=== PATIENT | male | born 1980 | race Caucasian/White ===

== ENCOUNTER 2018-11-19 03:06 | Emergency (ER) | payer SELFPAY ==
[2018-11-19 03:12] VITALS: BP 125/82; PULSE 80; RESP 18; TEMP 36.8; O2SAT 98
--- NOTE | 2018-11-19 03:18 | DI.RAD.S_ITS ---
PROCEDURE: XR SHOULDER LT MIN 2V INDICATIONS: pain with limited range of motion TECHNIQUE: 2 views of the shoulder were acquired. COMPARISON: None. FINDINGS: Bones: No fractures or dislocations. Severe osteoarthritic degenerative changes noted in the glenohumeral joint. Numerous large ossified intra-articular loose bodies are noted. Soft tissues: No suspicious soft tissue calcifications. IMPRESSION: 1. Severe left glenohumeral joint osteoarthritis. 2. Numerous large ossified intra-articular loose bodies. Dictated by: Anne Dial MD, PhD on 11/19/2018 at 8:29 Approved by: Anne Dial MD, PhD on 11/19/2018 at 8:29
[2018-11-19] MEDS: KETOROLAC 60 MG/2 ML VIAL IM (03:29)
--- NOTE | 2018-11-19 03:31 | ED.EXTPRO ---
HPI - Extremity Problem General Chief complaint: Extremity Problem,Nontraumatic Stated complaint: left shoulder pain Time Seen by Provider: 11/19/18 03:08 Source: patient Mode of arrival: Ambulatory Limitations: no limitations History of Present Illness HPI Narrative: 30-year-old male smoker with multiple orthopedic injuries in his past presents with his significant other in the chief complaint of a left shoulder injury suffered yesterday while exiting his truck. He states he was reaching out with his left arm to grab the door and moved it in an awkward position since his felt significant pain with most motions of his shoulder. He denies any other injury. He denies any numbness, tingling or weakness. MD Complaint: extremity pain Onset (ago): day(s) Pain Consistency: constant Location: left Quality: stabbing and aching Radiation: none Relieving factors: rest Exacerbating factors: range of motion Associated symptoms: denies other symptoms Related Data Previous Rx's Medication Instructions Recorded cyclobenzaprine 10 mg PO TID PRN #10 tab 11/19/18 ketorolac 10 mg PO Q6H PRN #14 tab 11/19/18 Allergies Allergy/AdvReac Type Severity Reaction Status Date / Time No Known Drug Allergies Allergy Verified 11/19/18 03:23 Review of Systems Constitutional Constitutional: Denies chills, Denies fatigue, Denies fever(s), Denies frequent falls, Denies lethargy and Denies weakness Eyes Eyes: Denies change in vision, Denies eye discharge, Denies irritation and Denies loss of vision ENT Ears, Nose, Mouth, and Throat: Denies change in voice, Denies dizziness, Denies neck pain, Denies sore throat and Denies throat swelling Cardiovascular Cardiovascular: Denies chest pain, Denies irregular heart rhythm, Denies lightheadedness, Denies palpitations, Denies dyspnea, Denies dyspnea on exertion and Denies orthopnea Respiratory Respiratory: Denies cough, Denies dyspnea, Denies dyspnea on exertion and Denies wheezing Gastrointestinal Gastrointestinal: Denies abdominal pain, Denies change in bowel habits, Denies diarrhea, Denies nausea and Denies vomiting Genitourinary Genitourinary: Denies hematuria, Denies flank pain, Denies urinary incontinence and Denies urinary urgency Musculoskeletal Musculoskeletal: Denies back pain, Reports limited range of motion, Denies muscle weakness, Denies neck pain, Denies numbness and Denies tingling Integumentary/Breasts Skin/Breast: Denies pruritus, Denies erythema, Denies rash and Denies wounds Neurologic Neurologic: Denies behavioral changes, Denies confusion, Denies dizziness, Denies frequent falls, Denies loss of vision, Denies numbness, Denies tingling and Denies weakness Psychiatric Psychiatric: Denies anxiety, Denies behavioral changes, Denies confusion, Denies depression, Denies homicidal ideation and Denies suicidal ideation Endocrine Endocrine: Denies fatigue, Denies flushing and Denies palpitations Hematologic/Lymphatic Hematologic/Lymphatic: Denies easy bruising Allergic/Immunologic Allergic/Immunologic: Denies urticaria, Denies throat swelling and Denies wheezing PFSH Social History Smoking Status: Current every day smoker Social History Smoking Status: Current every day smoker Exam Narrative Exam Narrative: GEN: AOx3 and in mild distress EYES: Pupils are equal, round, and reactive to light and accommodation. Extraoccular muscles are intact bilaterally. There is no subconjunctival hemorrhage or exudate. CHEST: Lungs are clear to auscultation bilaterally and free of wheezes, rales, or rhonchi. Heart rate is regular rhythm, there are no murmurs, clicks, rubs, or gallops. There is no chest wall tenderness. ABD: Abdomen is soft and nontender. There is no guarding or rebound. Bowel sounds are normal in all 4 quadrants. There is no mass or organomegaly. EXT: Decreased ROM secondary to pain in left shoulder. No numbness or weakness. Pain with most motions, mainly at insertion of biceps. SKIN: Warm, pink, and dry. No erythema or rash Initial Vital Signs Initial Vital Signs: Vital Signs Temperature 98.3 F 11/19/18 03:12 Pulse Rate 80 11/19/18 03:12 Respiratory Rate 18 11/19/18 03:12 Blood Pressure 125/82 11/19/18 03:12 Pulse Oximetry 98 11/19/18 03:12 Procedures Orthopedic Splinting/Casting Injury #1: Side: left Upper Extremity Injury Location: shoulder Upper Extremity Immobilizer: sling/shoulder immobilizer Post splinting neuro exam: intact Post splinting vascular exam: intact Placed by: Nursing Course Orders Ordered: ED Orders 11/19/18 03:18 XR shoulder LT min 2V Stat Discontinued Medications Ketorolac Tromethamine (Toradol) 60 mg IM NOW ONE Stop: 11/19/18 03:19 Last Admin: 11/19/18 03:29 Dose: 60 mg Documented by: COCO Vital Signs Vital signs: Vital Signs - 8 hr 11/19/18 03:12 11/19/18 04:15 Temperature 98.3 F Pulse Rate 80 68 Respiratory Rate 18 18 Blood Pressure 125/82 116/69 Pulse Oximetry 98 98 MDM - Extremity (Nontraumatic) Imaging Data Shoulder Xray: Attestation: I personally reviewed and interpreted this imaging study as follows: My impression: chronic arthritic change Radiologist's impression: Advanced OA change of L glenohumeral joint with suspected loos intraarticular bodies Discharge Plan Departure Patient Disposition: Home Clinical Impression: Acute pain of left shoulder Discharge Date/Time: 11/19/18 04:17 Instructions: DI for Shoulder Pain Activity Restrictions/Additional Instructions: *You have been diagnosed with [acute left shoulder pain with chronic arthritis noted on x-ray] *What to do: *Take medications as directed *Follow up with your primary care provider in 2-3 days, call for an appointment. Let them know you were seen in the Emergency Department and that we ask that you be seen in follow up *Return to ER if you should have any new, worsening or concerning symptoms Prescriptions: New ketorolac 10 mg tablet 10 mg PO Q6H PRN (Reason: pain) Qty: 14 RF: 0 cyclobenzaprine 10 mg tablet 10 mg PO TID PRN (Reason: muscle spasm) Qty: 10 RF: 0 Referrals: [facility] Resources [Outside] Stand Alone Forms: Work Release Note
[2018-11-19 04:15] VITALS: BP 116/69; PULSE 68; RESP 18; O2SAT 98
== END 2018-11-19 04:17 | disposition home or self-care (01) ==
PROVIDERS: Emergency Provider Emergency Medicine
DX: M25.512 Pain in left shoulder (principal); S49.92XA Unspecified injury of left shoulder and upper arm, initial encounter
CPT/HCPCS: 73030; 96372; 99282; 99283; J1885

== ENCOUNTER 2019-05-05 03:18 | Emergency (ER) | payer SELFPAY ==
[2019-05-05 03:25] VITALS: BP 125/58; PULSE 86; RESP 18; TEMP 37; O2SAT 100
--- NOTE | 2019-05-05 03:30 | PC.NURSE ---
PT states R knee pain, splitting wood a week ago, and wood chip struck his rt knee caused laceration, now swollen, red, draining and painful after epsom salt bath. Denies Fever.
--- NOTE | 2019-05-05 03:38 | DI.RAD.S_ITS ---
PROCEDURE: XR KNEE RT 3V INDICATIONS: knee pain, had laceration 1 week ago opened back up, swelling TECHNIQUE: 3 views of the knee were acquired. COMPARISON: None. FINDINGS: Bones: No fractures or dislocations. No suspicious bony lesions. Soft tissues: Trace joint effusion. No suspicious soft tissue calcifications. Prepatellar soft tissue swelling. IMPRESSION: 1. No acute osseous abnormalities. 2. Prepatellar soft tissue swelling and trace knee joint effusion. Dictated by: Keke Lackey M.D. on 05/05/2019 at 8:19 Approved by: Keke Lackey M.D. on 05/05/2019 at 8:21
--- NOTE | 2019-05-05 03:39 | ED_ITS ---
HPI - Extremity Injury (Lower) General Chief Complaint: Extremity Injury, Lower Stated Complaint: right knee is infected/swollen Time Seen by Provider: 05/05/19 03:29 Source: patient Mode of arrival: Ambulatory Limitations: no limitations History of Present Illness HPI Narrative: This is a 39-year-old male who comes to the emergency department with complaint of right knee swelling and concern for infection. Last a week ago patient was chopping wood when a small piece broke off and hit him in the knee. Patient states he did not think that he had injured his knee until he took his pants off and saw a small laceration. States that it closed up seem to be healing fine and over the last several days he has had increasing swelling and pain in the knee, some very mild redness and it reopened in the last 2 days. He states it has been draining clearish fluid. He states he is more comfortable walking around in sitting still. He denies any numbness tingling or weakness. He describes pain over the area of laceration and a little bit of suprapatellar discomfort. He has not had any fevers. He does have a history of epilepsy and takes daily anti left ache prescribed by his neurologist at [facility]. And states that he has not had a seizure in many years. He denies any other medical history. He denies any recent surgeries. He states he does not know if his tetanus is up-to-date. He has been taking ibuprofen which has been minimally helpful for pain. Related Data Previous Rx's Medication Instructions Recorded cyclobenzaprine 10 mg PO TID PRN #10 tab 11/19/18 ketorolac 10 mg PO Q6H PRN #14 tab 11/19/18 doxycycline hyclate 100 mg PO BID #20 cap 05/05/19 Allergies Allergy/AdvReac Type Severity Reaction Status Date / Time No Known Drug Allergies Allergy Verified 11/19/18 03:23 Review of Systems Review of Systems ROS Unobtainable: All systems reviewed & are unremarkable except as noted in HPI and below Patient History Medical History (Updated 05/05/19 @ 04:02 by Alexandrea Luna DO) Epilepsy (Acute) Social History Smoking Status: Current every day smoker Smoking Status: Current every day smoker alcohol intake frequency: a few times a week Substance Use Type: does not use Exam Narrative Exam Narrative: GENERAL: Alert and oriented x three, well-nourished, well- appearing male in mild distress. HEENT: Head normocephalic, atraumatic, EOMI, pupils reactive, face symmetric, moist mucous membranes NECK: Supple, full range of motion CARDIOVASCULAR: Regular rate and rhythm without murmurs, rubs or gallops. RESPIRATORY: Breath sounds equal bilaterally, no wheezes rales or rhonchi. ABDOMEN: Soft, nontender. Normoactive bowel sounds all 4 quadrants. No guarding or rebound, rigidity, no mass EXTREMITIES: Normal range of motion, patient does have edema of the right knee, no ballotable effusion, he has a 1 cm laceration over the lateral knee on the right that is medial and superior to the patella, a it is draining clear serosanguineous fluid. There is no warmth. It is moderately tender. I am not able to express any purulent fluid. There is some very mild redness surrounding the area extending about 0.5 cm to 2 cm with no clear line of demarcation. Neurovascularly intact, normal sensation throughout the lower extremity 2+ dorsalis pedis. NEUROLOGICAL: Cranial nerves II through XII grossly intact. Moving all extremities SKIN: Warm, dry, no petechiae, no rashes or lesions other than described above Initial Vital Signs Initial Vital Signs: Vital Signs Temperature 98.6 F 05/05/19 03:25 Pulse Rate 86 05/05/19 03:25 Respiratory Rate 18 05/05/19 03:25 Blood Pressure 125/58 L 05/05/19 03:25 Pulse Oximetry 100 05/05/19 03:25 Course Orders Ordered: ED Orders 05/05/19 03:38 XR knee RT 3V Stat Discontinued Medications Hydrocodone Bitart/Acetaminophen ([place] 5/325) 1 tab PO NOW ONE Stop: 05/05/19 03:39 Last Admin: 05/05/19 03:54 Dose: 1 tab Documented by: MMCFARL Hydrocodone Bitart/Acetaminophen (Vicodin 5/325 Prepack) 1 bottle MISC SEEINSTR ONE Stop: 05/05/19 04:07 Diphtheria/Tetanus/Acell Pertussis (Adacel) 0.5 ml IM .ONCE ONE Stop: 05/05/19 03:39 Last Admin: 05/05/19 03:55 Dose: 0.5 ml Documented by: YOUSUF Doxycycline Hyclate (Vibramycin) 100 mg PO NOW ONE Stop: 05/05/19 03:58 Last Admin: 05/05/19 04:01 Dose: 100 mg Documented by: YOUSUF Vital Signs Vital signs: Vital Signs - 8 hr 05/05/19 03:25 05/05/19 04:02 Temperature 98.6 F Pulse Rate 86 63 Respiratory Rate 18 14 Blood Pressure 125/58 L 125/57 L Pulse Oximetry 100 [facility] - Extremity Injury (Lower) Imaging Data Right knee x-ray: Attestation: I personally reviewed and interpreted this imaging study as follows: My Impression: No fracture, no foreign body. Patient does appear to have a joint effusion with soft tissue swelling. [facility] Narrative Medical decision making narrative: Patient has no open laceration and I would start him on antibiotics as he does appear to have some mild cellulitis does have swelling over the knee. The wound does not appear particularly deep. Tetanus is updated. There does not appear to be a foreign body on visual or physical inspection and x-ray shows soft tissue swelling. Patient was started on a doxycycline which does not appear that it should lower his seizure threshold according to resources. Patient and I discussed reasons to return emergently, plan for follow-up and return precautions. Discharge Plan Departure Patient Disposition: Home Clinical Impression: Cellulitis of knee, right Laceration of knee with complication Qualifiers: Encounter type: initial encounter Laterality: right Qualified Code(s): S81.011A - Laceration without foreign body, right knee, initial encounter Discharge Date/Time: 05/05/19 04:02 Instructions: DI for Cellulitis -- Adult, DI for Open Laceration Activity Restrictions/Additional Instructions: Follow-up in the next 5-7 days if her symptoms are not resolving. May return to the ER if he cannot follow up with primary care. You may call [phone] for a potential primary care provider or follow up with the urgent care clinic. Take antibiotics until completely gone. I would recommend continuing ibuprofen and/or Tylenol as needed for pain. You may take narcotic pain medication 1 tablet every 6 hours as needed for pain. Wound Care: Keep wound(s) clean and dry. Wash twice daily with soap and water only. Do not use over the counter products (alcohol or peroxide)on the wounds unless instructed by a physician. You may use a topical triple antibiotic ointment. If wound condition worsens (increased/expanding redness, developing fluid blisters, or worsening pain), either contact your doctor for an urgent re- assessment , or return to the Emergency Department. Return to the Emergency Department for any new or worsening symptoms. Return if fever greater than 100.4 Fahrenheit, increased swelling, increasing pain or worsening symptoms such as increased discharge or spreading redness. Return to the ER for fevers greater 100.4 F, increasing swelling, increasing redness, purulent drainage from the knee, new numbness, tingling or weakness. Prescriptions: New doxycycline hyclate 100 mg capsule 100 mg PO BID Qty: 20 RF: 0 No Action ketorolac 10 mg tablet 10 mg PO Q6H PRN (Reason: pain) Qty: 14 RF: 0 cyclobenzaprine 10 mg tablet 10 mg PO TID PRN (Reason: muscle spasm) Qty: 10 RF: 0
[2019-05-05] MEDS: HYDROCODONE/ACET 5/325 TABLET 1 TAB PO (03:54)
[2019-05-05] MEDS: TET,DIPH,PERTUSS(ACELL),VAC/PF 0.5 ML SYRINGE IM (03:55)
[2019-05-05] MEDS: DOXYCYCLINE HYCLATE 100 MG TABLET PO (04:01)
[2019-05-05 04:02] VITALS: BP 125/57; PULSE 63; RESP 14
--- NOTE | 2019-05-05 13:38 | PM.CN ---
History of Present Illness Consult details Date Patient Seen: 05/05/19 Time Patient Seen: 13:38 Chief complaint: right knee is infected/swollen Reason for consult: left knee cellulitis, r/o septic knee Requesting provider: Fernando Paul Narrative: Patient is a 39 yo M with a history of a seizure disorder. He cut himself with a piece of wood while cutting wood yesterday. He was seen in the ER this morning at 3am and discharged with doxycycline. He has had worsening of the cellulitis since DC this am. He had a seizure this am. He presents this afternoon with increased pain, swelling, erythema. Able to ambulate on the right knee. Meds Home Medications and Allergies Home Medications Medication Instructions Recorded Confirmed Type divalproex 250 mg PO BID 05/05/19 05/05/19 History lamotrigine 200 mg PO BID 05/05/19 05/05/19 History Allergies Allergy/AdvReac Type Severity Reaction Status Date / Time amoxicillin Allergy Verified 05/05/19 11:32 Review of Systems Review of Systems ROS: Yes All systems reviewed with the patient and are negative except as otherwise documented Exam Vital Signs (past 8 hours): Oxygen Delivery Method Room Air Narrative Exam Narrative: NV intact in RLE, small laceration to the medial side of the right knee. No active drainage. Surrounding erythema and swelling. Increased from previous (3am). Small joint effusion. Mild pain with knee ROM. Skin over the lateral aspect of the knee is clear. No fluctuance or palpable mass over medial aspect of knee. Assessment & Plan Assessment & Plan narrative: Patient is a 39 yo male with a lacertation over the medial aspect of his right knee from a piece of firewood. He has failed a course of oral abx (doxycycline). There was concern for possible right knee septic arthriitis. Right knee aspiration was performed here in the ED. 5cc of clear, straw-colored synovial fluid was aspirated and sent for gram stain, cell count, and cultures. Low concern for septic arthritis or abscess. Recommend admission for IV abx for cellultitis. Please contact Dr. Terrazas if knee aspirate labs are abnormal. Time Spent With Patient Time with patient: 15-24 minutes
== END 2019-05-05 04:02 | disposition home or self-care (01) ==
PROVIDERS: Emergency Provider Emergency Medicine
DX: L03.115 Cellulitis of right lower limb (principal); S81.011A Laceration without foreign body, right knee, initial encounter; Z23 Encounter for immunization
CPT/HCPCS: 73562; 90471; 99283; 90715

== ENCOUNTER 2019-05-05 11:21 | Inpatient (IN) | payer SELFPAY ==
[2019-05-05] VITALS (12 sets, daily range): BP systolic 100–125; BP diastolic 61–79; PULSE 97–128; RESP 16–20; TEMP 36.7–38.7; O2SAT 93–98; BMI 25.9
--- NOTE | 2019-05-05 11:38 | ED_ITS ---
HPI - General Adult General Chief complaint: Seizure Stated complaint: right leg infection Time Seen by Provider: 05/05/19 11:23 Source: patient Mode of arrival: Ambulatory Limitations: no limitations History of Present Illness HPI narrative: With a history of seizures was seen here in the emergency department approximately 12 hours ago for what was initially described as an infection of his right knee. The initial injury was a cut with a piece of wood approximately 1 week ago. During his visit to the emergency department a few hours ago was described as a small area of erythema around the cut to his right knee. Patient was given a dose of doxycycline at that visit by mouth and was sent home with a prescription and also pain medications. X-rays performed which showed note foreign body. No blood work was drawn. Patient states he went home and woke up this morning and the redness was worse. He is having more pain. He also had a seizure this morning. He did take his seizure medications. He has n ot had a seizure in several years. Also reports that he had a fever this morning of greater than 101. Related Data Home Medications Medication Instructions Recorded Confirmed divalproex 250 mg PO BID 05/05/19 05/05/19 lamotrigine 200 mg PO BID 05/05/19 05/05/19 Allergies Allergy/AdvReac Type Severity Reaction Status Date / Time amoxicillin Allergy Verified 05/05/19 11:32 Review of Systems Constitutional Constitutional: Denies headache(s) and Reports lethargy ENT Ears, Nose, Mouth, and Throat: Denies headache(s) Cardiovascular Cardiovascular: Denies chest pain and Denies dyspnea Respiratory Respiratory: Denies dyspnea Gastrointestinal Gastrointestinal: Denies abdominal pain Musculoskeletal Comments: Right knee pain Integumentary/Breasts Skin/Breast: Reports rash and Reports wounds Neurologic Neurologic: Denies headache(s) and Reports seizure-like activity Hematologic/Lymphatic Hematologic/Lymphatic: Denies easy bleeding and Denies easy bruising Patient History Medical History Epilepsy (Acute) Social History Smoking Status: Current every day smoker Smoking Status: Current every day smoker alcohol intake frequency: a few times a week Substance Use Type: does not use Exam Initial Vital Signs Initial Vital Signs: Vital Signs Temperature 98.4 F 05/05/19 11:32 Pulse Rate 103 H 05/05/19 11:32 Respiratory Rate 16 05/05/19 11:32 Blood Pressure 124/64 05/05/19 11:32 Pulse Oximetry 98 05/05/19 11:32 Const General: cooperative, comfortable and well developed Limitations: mental status not altered [facility] Head: normal to inspection and normocephalic Resp Effort & Inspection: normal respiratory effort Cardio Rate: regular rate Pulses: dorsalis pedis present on the right Skin Other: Patient with a 1 cm laceration to the medial aspect superior to the right patella. Is draining purulent material. Also has redness extending down the medial aspect of the needle almost to the posterior aspect both superior and inferior to the knee joint. Extrem Other: Tenderness to palpation with movement of the right knee. Right ankle right hip unremarkable Psych Appearance: grossly normal and well kempt Course Orders Ordered: ED Orders 05/05/19 11:52 Basic Metabolic Panel Stat C-Reactive Protein Quant Stat Complete Blood Count AUTO DIFF Stat Erythrocyte Sedimentation Rate Stat 05/05/19 13:29 Uric Acid Stat 05/05/19 13:35 Body Fluid Culture Stat Cell Count w Diff Body Fluid Stat Crystals Body Fluid - IN-HOUSE Stat 05/05/19 13:42 Consult to Orthopedic Surgery Stat 05/05/19 13:59 Procalcitonin Stat Ceftriaxone Sodium/Dextrose (Rocephin) 1 gm in 50 mls @ 100 mls/hr IV NOW ONE Stop: 05/05/19 14:27 Discontinued Medications Hydrocodone Bitart/Acetaminophen ([place] 5/325) 1 tab PO NOW ONE Stop: 05/05/19 12:10 Last Admin: 05/05/19 12:23 Dose: 1 tab Documented by: LISA Vancomycin HCl (Vancomycin) 1,000 mg in 200 mls @ 200 mls/hr IV NOW ONE Stop: 05/05/19 13:02 Last Infusion: 05/05/19 13:15 Dose: 0 mls/hr Documented by: Admin: 05/05/19 12:14 Dose: 200 mls/hr Documented by: LISA Vital Signs Vital signs: Vital Signs - 8 hr 05/05/19 11:32 05/05/19 12:11 05/05/19 12:23 Temperature 98.4 F 98.4 F 98.4 F Pulse Rate 103 H 97 H Respiratory Rate 16 17 Blood Pressure 124/64 Blood Pressure [Right Arm] 124/64 Pulse Oximetry 98 98 05/05/19 12:56 Temperature 98.9 F Pulse Rate 101 H Respiratory Rate 20 Blood Pressure Blood Pressure [Right Arm] 124/64 Pulse Oximetry 97 Medical Decision Making Lab Data Lab results reviewed: Yes I reviewed the patient's lab results. Result diagrams: 05/05/19 11:52 05/05/19 11:52 Labs: Lab Results 05/05/19 05/05/19 Range/Units 11:52 11:52 WBC 44.9 H* (4.5-11.0) X10^3/uL RBC 5.28 (4.5-5.9) X10^6/uL Hgb 15.8 (13.5-17.5) g/dL Hct 47.0 (41-53) % MCV 88.9 (80-100) fL MCH 30.0 (26-34) PG MCHC 33.7 (30-36) % RDW 13.2 (11.6-14.8) % Plt Count 477 H (150-400) X10^3/uL Neut % (Auto) Administrative Associate Lymph % (Auto) Administrative Associate Millard % (Auto) Administrative Associate Eos % (Auto) Administrative Associate Baso % (Auto) Administrative Associate Neut # (Auto) Administrative Associate Lymph # (Auto) Administrative Associate Millard # (Auto) Administrative Associate Eos # (Auto) Administrative Associate Baso # (Auto) Administrative Associate Total Counted 100 Seg Neutrophils % 72.0 H (38-70) % Band Neutrophils % 20.0 H (3-7) % Lymphocytes % (Manual) 1.0 L (25-45) % Monocytes % (Manual) 6.0 (2-11) % Metamyelocytes % 1.0 H (-0) % Neutrophils # (Manual) 26407 H (4375-5591) /uL Platelet Estimate Increased on smear Plt Morphology Comment RBC Morphology Normal morphology ESR 1 (0-15) MM/HR Sodium 136 L (137-145) mmol/L Potassium 4.2 (3.4-5.1) mmol/L Chloride 101 (98-107) mmol/L Carbon Dioxide 20 L (22-32) mmol/L BUN 18 (9-20) mg/dL Creatinine 0.90 (0.66-1.25) mg/dL Estimated GFR > 60.0 (>60) mL/min BUN/Creatinine Ratio 20.0 (6-22) Glucose 155 H (70-100) mg/dL Calcium 9.7 (8.4-10.2) mg/dL C-Reactive Protein 3.3 H (<1.0) mg/dL MDM Narrative Medical decision making narrative: Does appear that the patient's right knee cellulitis is worsening since his last visit here just several hours ago. He is afebrile here in the ER. He reports that he did have a fever this morning. Did not take any Tylenol or ibuprofen prior to coming. He also had a seizure this morning. I do suspect this is related to his infection that he has. Is alert and oriented upon arrival. Has a leukocytosis. Unsure if this is related to an issue such as leukemia or if it is elevated because of the infection and the seizure he had today. Patient was given antibiotics. I did discuss the case with Dr. Terrazas who evaluated the patient in the emergency department. He did perform a knee aspiration. We do have low suspicion that this is a septic j oint. He will continue to follow the patient. I did discuss the case with Dr. Araya on-call for Medicine who will admit the patient for continued evaluation and treatment. Discussed this with the patient and family. They expressed understanding and agreement. Discharge Plan Departure Patient Disposition: Admitted As Inpatient Clinical Impression: Seizure Cellulitis Qualifiers: Site of cellulitis: extremity Site of cellulitis of extremity: lower extremity Laterality: right Qualified Code(s): L03.115 - Cellulitis of right lower limb Leukocytosis Qualifiers: Leukocytosis type: unspecified Qualified Code(s): D72.829 - Elevated white blood cell count, unspecified Admit Date/Time: 05/05/19 14:06 Admit Provider: Gloria Araya ED Sign-out Cosign ED Attending Cosignature Attestation: I was immediately available in the department for consultation. This documentation has been reviewed and I agree with assessment and plan. Supervised by Fernando Paul DO
[2019-05-05 12:04] LABS: Hemoglobin 15.8 g/dL (13.5-17.5); Mean Corpuscular HGB Conc 33.7 % (30-36); Mean Corpuscular Volume 88.9 fL (80-100); Platelet Count 477 X10^3/uL (150-400); Red Blood Cell Count 5.28 X10^6/uL (4.5-5.9); Red Cell Distribution Width 13.2 % (11.6-14.8)
[2019-05-05 12:06] LABS: Add Manual Diff / Slide Review YES; White Blood Cell Count 44.9 X10^3/uL (4.5-11.0)
--- NOTE | 2019-05-05 12:07 | PC.NURSE ---
Patient is epileptic and does have aural sensation. Before he has a seizure, he doesn't feel well and his right eye droops.
[2019-05-05] MEDS: VANCOMYCIN 1,000 MG/200 ML PIGGYBACK 200 MG IV (12:14)
[2019-05-05 12:15] LABS: Blood Urea Nitrogen 18 mg/dL (9-20); C-Reactive Protein Quant 3.3 mg/dL (<1.0); Calcium 9.7 mg/dL (8.4-10.2); Carbon Dioxide 20 mmol/L (22-32); Chloride 101 mmol/L (98-107); Estimated Glomerular Filt Rate > 60.0 mL/min (>60); Glucose 155 mg/dL (70-100); HEMOLYSIS 37 (0-50); Potassium 4.2 mmol/L (3.4-5.1); Sodium 136 mmol/L (137-145)
[2019-05-05] MEDS: HYDROCODONE/ACET 5/325 TABLET 1 TAB PO ×2 (12:23→17:36)
[2019-05-05 12:36] LABS: Neutrophils Absolute Manual 41308 /uL (3000-5900); Total Cells Counted 100
[2019-05-05 12:37] LABS: Platelet Estimate Increased on smear; RBC Morphology Normal Morphology
[2019-05-05 12:39] LABS: Erythrocyte Sedimentation Rate 1 MM/HR (0-15)
--- NOTE | 2019-05-05 12:58 | PC.NURSE ---
Patient was reassessed for the IV vancomycin. Patient reported no discomfort and pain coming from IV site.
[2019-05-05 14:12] LABS: Body Fluid Tot Nucleated Cells 226 /uL
[2019-05-05 14:13] LABS: Body Fluid Red Blood Cells 415 /uL
[2019-05-05 14:14] LABS: Body Fluid Appearance SLIGHTLY CLOUDY; Body Fluid Clotted? NO CLOTS PRESENT; Body Fluid Color YELLOW
[2019-05-05] MEDS: CEFTRIAXONE 1 GM/50 ML FROZ.PIGGY IV (14:21)
[2019-05-05 14:48] LABS: Crystals Body Fluid - IN-HOUSE NONE Present
[2019-05-05 14:57] LABS: Mononuclear WBC Body Fluid 81 %; Polynuclear WBC Body Fluid 19 %
[2019-05-05 15:11] LABS: Uric Acid 8.3 mg/dL (3.5-8.5)
[2019-05-05 15:30] LABS: Procalcitonin 1.78 ng/mL (<0.5)
[2019-05-05] MEDS: SODIUM CHLORIDE 0.9% 1,000 ML 100 ML IV (16:10)
--- NOTE | 2019-05-05 20:50 | P.HP_ITS ---
History of Present Illness History of Present Illness Date Patient Seen: 05/05/19 Time Patient Seen: 22:15 Chief complaint: right leg infection Narrative: Jah Wei is a 39-year-old male with a seizure disorder who presented for 2nd time to the emergency department today with fever and a seizure that may have been associated with being treated for a cellulitis of the right lower thigh. Patient had apparently sustained a laceration of his right lower thigh just above the patella while cutting wood approximately 1 week ago. He presented to the emergency department yesterday night and was given oral doxycycline and discharged. He developed a fever this morning and at some point had a seizure and represented today. He states he had a fever of 100.4, had been having nausea and vomiting causing him to have generalized chest pain. He denies shortness of breath, abdominal pain, diarrhea, constipation, dysuria, or numbing and tingling. Patient does not have a PCP. He lives [place] of [facility] and sees a neurologist at [facility] for his seizure follow-ups and medication prescriptions. He states he will not go to [facility] for any of his medical care. In his initial presentation to the ED last night, they did a fluid aspirate and anaerobic and aerobic cultures are pending. Patient History Medical History (Updated 05/05/19 @ 21:06 by JEN Monsalve) Epilepsy (Acute) Laceration of knee with complication (Inactive) Seizure disorder (Acute) Family & Social History Family History (Updated 05/05/19 @ 21:07 by JEN Monsalve) Other Diabetes mellitus Social History: household members significant other Prior Living Arrangements House Safety & Behavioral: Feels Safe in Current Yes Environment Suicidal Ideation Description None Suicide Plan Description No Plan Tobacco & Substance use: Smoking Status Current every day smoker Smoking packs per day 0.5 alcohol intake frequency 1 beer daily Substance Use Type denies Meds Home Medications and Allergies Home Medications Medication Instructions Recorded Confirmed Type divalproex 250 mg PO BID 05/05/19 05/05/19 History lamotrigine 200 mg PO BID 05/05/19 05/05/19 History Allergies Allergy/AdvReac Type Severity Reaction Status Date / Time amoxicillin Allergy Verified 05/05/19 11:32 Review of Systems Review of Systems ROS: Yes All systems reviewed with the patient and are negative except as otherwise documented Exam Vital Signs (past 8 hours): - 05/05/19 12:56 05/05/19 14:26 05/05/19 15:12 Temperature 98.9 F 98.8 F 98.8 F Pulse Rate 101 H 109 H 101 H Respiratory Rate 20 16 18 Blood Pressure 124/64 Blood Pressure [Right Arm] 124/64 124/64 Pulse Oximetry 97 97 97 05/05/19 16:04 05/05/19 20:00 Temperature 99.5 F 101.7 F H Pulse Rate 98 H 128 H Respiratory Rate 18 18 Blood Pressure 125/79 124/71 Blood Pressure [Right Arm] Pulse Oximetry 98 93 Oxygen Delivery Method Room Air Oxygen Flow Rate 0 Narrative Exam Narrative: Gen: Alert, oriented, well-developed 39 y.o. male, very lethargic HEENT: normocephalic, atraumatic, conjunctiva clear, sclera non-icteric, oral mucosa pink and moist Neck: supple, full ROM Resp: Lungs CTA, non-labored breathing CV: RRR, no murmur or rubs Abd: soft, non-tender, normoactive BTs Skin: no lesions or rashes, has a healing puncture scar proximally 1/8 inch in diameter, surrounding area with mild erythema and retreating from the outlined area of his lower right thigh Neuro: Post-ictal affect. Alert and oriented X 4 w/no focal deficits Extremities: moves all 4 extremities, is ambulatory, negative Milton?s sign Psyche: normal mood and affect. Objective Labs Result Diagrams: 05/05/19 11:52 05/05/19 11:52 Labs: Laboratory Results - last 24 hr 05/05/19 05/05/19 05/05/19 11:52 11:52 11:52 WBC 44.9 H* RBC 5.28 Hgb 15.8 Hct 47.0 MCV 88.9 MCH 30.0 MCHC 33.7 RDW 13.2 Plt Count 477 H Neut % (Auto) Industrial Roofer Lymph % (Auto) Industrial Roofer [place] % (Auto) Industrial Roofer Eos % (Auto) Industrial Roofer Baso % (Auto) Industrial Roofer Neut # (Auto) Industrial Roofer Lymph # (Auto) Industrial Roofer [place] # (Auto) Industrial Roofer Eos # (Auto) Industrial Roofer Baso # (Auto) Industrial Roofer Total Counted 100 Seg Neutrophils % 72.0 H Band Neutrophils % 20.0 H Lymphocytes % (Manual) 1.0 L Monocytes % (Manual) 6.0 Metamyelocytes % 1.0 H Neutrophils # (Manual) 65846 H Platelet Estimate Increased on smear Plt Morphology Comment RBC Morphology Normal morphology ESR 1 Sodium 136 L Potassium 4.2 Chloride 101 Carbon Dioxide 20 L BUN 18 Creatinine 0.90 Estimated GFR > 60.0 BUN/Creatinine Ratio 20.0 Glucose 155 H Uric Acid 8.3 Calcium 9.7 C-Reactive Protein 3.3 H Procalcitonin Fluid Color Fluid Appearance Fluid RBC Fld Tot Nucleated Cell Fluid Polynuclear WBCs Fluid Mononuclear WBCs Fluid Eosinophils Fluid Other Cells Fluid Crystals Body Fluid Clot 05/05/19 05/05/19 05/05/19 11:52 13:35 13:35 WBC RBC Hgb Hct MCV MCH MCHC RDW Plt Count Neut % (Auto) Lymph % (Auto) [place] % (Auto) Eos % (Auto) Baso % (Auto) Neut # (Auto) Lymph # (Auto) [place] # (Auto) Eos # (Auto) Baso # (Auto) Total Counted Seg Neutrophils % Band Neutrophils % Lymphocytes % (Manual) Monocytes % (Manual) Metamyelocytes % Neutrophils # (Manual) Platelet Estimate Plt Morphology Comment RBC Morphology ESR Sodium Potassium Chloride Carbon Dioxide BUN Creatinine Estimated GFR BUN/Creatinine Ratio Glucose Uric Acid Calcium C-Reactive Protein Procalcitonin 1.78 H Fluid Color Yellow Fluid Appearance Slightly cloudy Fluid RBC 415 Fld Tot Nucleated Cell 226 Fluid Polynuclear WBCs 19 Fluid Mononuclear WBCs 81 Fluid Eosinophils Not Reportable Fluid Other Cells Not Reportable Fluid Crystals None present Body Fluid Clot No clots present Assessment & Plan Assessment & Plan narrative: Jah Wei will be admitted for antibiotic treatment of lower right extremity cellulitis and monitoring for additional seizures. 1. Lower right extremity cellulitis, acute, present on admission -he will receive IV ceftriaxone 2 g daily -monitor white count -fluid aspirate cultures are pending -IV ketoralac and oral hydrocodone as needed for pain 2. Seizure disorder, acute, present on admission -patient had a seizure just prior to admission -Continue home doses of devalproex and lamotrigine -Seizure precautions FEN: NS at 100 ml/hour, regular diet, chemistries in the am Patient is admitted inpatient his stay is likely to exceed 2 midnights. VTE Prophylaxis: Bilateral SCDs Medications reconciled: yes Disposition: Probable discharge to home Code Status: Full Code Quality VTE Deep Vein Thrombosis/Pulmonary Embolism Present on Admission: No
[2019-05-05] MEDS: lamoTRIgine 100 MG TABLET 200 MG PO (20:54)
[2019-05-05] MEDS: DIVALPROEX DR 250 MG TABLET PO (20:54)
[2019-05-05] MEDS: ACETAMINOPHEN 325 MG TABLET 650 MG PO (20:54)
[2019-05-05] MEDS: DOCUSATE 100 MG CAPSULE PO (20:58)
[2019-05-05] MEDS: KETOROLAC 15 MG/ML VIAL IV (20:58)
--- NOTE | 2019-05-05 21:44 | PC.NURSE ---
Evening Shift/Admit Note- Patient arrived to room via stretcher from ER ar 1455. Patient able to walk on his own from stretcher to bed. Admit questiohs done, home medications reviewed, and pgysical assessment completed. PRN [place] provided for c/o knee paiub. PRN IV Ketorolac given for C/O headache. PRN tylenol given for temp of 101.7degrees. took off socks, set up fan, pand gave a cool wash cloth. Patient oriented to bed abd bed controls, room, lights, phone, menu, and call gusman/tv remote. safety measures in place. Seizure pads in place. bed alarm activated. Patient agrees to call for assistance. Call gusman and phone within reach. will continue to monitor.
[2019-05-06] VITALS (11 sets, daily range): BP systolic 104–115; BP diastolic 59–66; PULSE 96–110; RESP 18–20; TEMP 37.6–38.9; O2SAT 94–99; BMI 25.9
[2019-05-06] MEDS: SODIUM CHLORIDE 0.9% 1,000 ML 100 ML IV ×2 (02:51→13:53)
[2019-05-06 05:53] LABS: Hematocrit 42.7 % (41-53); Hemoglobin 14.3 g/dL (13.5-17.5); Mean Corpuscular HGB Conc 33.4 % (30-36); Mean Corpuscular Hemoglobin 29.6 PG (26-34); Mean Corpuscular Volume 88.7 fL (80-100); Platelet Count 389 X10^3/uL (150-400); Red Blood Cell Count 4.82 X10^6/uL (4.5-5.9); Red Cell Distribution Width 13.5 % (11.6-14.8)
[2019-05-06] MEDS: ACETAMINOPHEN 325 MG TABLET 650 MG PO ×2 (06:12→19:39)
[2019-05-06 06:16] LABS: BUN Creatinine Ratio 21.4 (6-22); Blood Urea Nitrogen 18 mg/dL (9-20); Calcium 8.7 mg/dL (8.4-10.2); Carbon Dioxide 24 mmol/L (22-32); Chloride 102 mmol/L (98-107); Estimated Glomerular Filt Rate > 60.0 mL/min (>60); Glucose 120 mg/dL (70-100); Potassium 3.9 mmol/L (3.4-5.1); Sodium 134 mmol/L (137-145)
[2019-05-06 06:22] LABS: Add Manual Diff / Slide Review YES
[2019-05-06 06:24] LABS: White Blood Cell Count 33.7 X10^3/uL (4.5-11.0)
[2019-05-06 06:26] LABS: Erythrocyte Sedimentation Rate 6 MM/HR (0-15)
[2019-05-06 06:28] LABS: C-Reactive Protein Quant 21.5 mg/dL (<1.0); HEMOLYSIS < 15 (0-50)
[2019-05-06 07:00] LABS: Neutrophils Absolute Manual 30667 /uL (3000-5900); Total Cells Counted 100
[2019-05-06 07:02] LABS: RBC Morphology Normal Morphology
[2019-05-06 07:03] LABS: Procalcitonin 3.97 ng/mL (<0.5)
[2019-05-06] MEDS: HYDROCODONE/ACET 5/325 TABLET 1 TAB PO (08:55)
[2019-05-06] MEDS: DOCUSATE 100 MG CAPSULE PO ×2 (08:55→21:08)
[2019-05-06] MEDS: ENOXAPARIN 40 MG/0.4 ML SYRINGE SUBCUT (08:55)
[2019-05-06] MEDS: lamoTRIgine 100 MG TABLET 200 MG PO ×2 (08:56→21:08)
[2019-05-06] MEDS: DIVALPROEX DR 250 MG TABLET PO ×2 (08:56→21:08)
--- NOTE | 2019-05-06 09:23 | P.PN_ITS ---
Subjective Subjective Date Patient Seen: 05/06/19 Time Patient Seen: 09:23 Interval history: His knee is feeling better. Pain is minimal laying in bed. It only hurts when he tries to stand or walk on it. Exam Vital Signs (past 8 hours): - 05/06/19 06:12 05/06/19 06:22 Temperature 102.1 F H 102.1 F H Pulse Rate 110 H Respiratory Rate 18 Blood Pressure 114/66 Pulse Oximetry 96 Oxygen Delivery Method Room Air Oxygen Flow Rate 0 Const Orientation: alert and oriented x3 Extrem Other: Left knee comfortable range of motion from 0 to 25?. Nontender and no swelling over the medial and lateral joint line or the prepatellar bursa. 8 mm abrasion several cm medial to the patella with no fluctuance or drainage. There is surrounding erythema which mostly goes medial and superiorly. A little bit posterior in the distal thigh but not behind the knee joint. This has been marked out with a marker and is larger than yesterday morning. However, very mild erythema in the new region. Objective Labs Result Diagrams: 05/06/19 05:20 05/06/19 05:20 Labs: Laboratory Results - last 24 hr 05/05/19 05/05/19 05/05/19 11:52 11:52 11:52 WBC 44.9 H* RBC 5.28 Hgb 15.8 Hct 47.0 MCV 88.9 MCH 30.0 MCHC 33.7 RDW 13.2 Plt Count 477 H Neut % (Auto) Kiln Burner Helper Lymph % (Auto) Kiln Burner Helper [place] % (Auto) Kiln Burner Helper Eos % (Auto) Kiln Burner Helper Baso % (Auto) Kiln Burner Helper Neut # (Auto) Kiln Burner Helper Lymph # (Auto) Kiln Burner Helper [place] # (Auto) Kiln Burner Helper Eos # (Auto) Kiln Burner Helper Baso # (Auto) Kiln Burner Helper Total Counted 100 Seg Neutrophils % 72.0 H Band Neutrophils % 20.0 H Lymphocytes % (Manual) 1.0 L Monocytes % (Manual) 6.0 Eosinophils % (Manual) Metamyelocytes % 1.0 H Neutrophils # (Manual) 46593 H Platelet Estimate Increased on smear Plt Morphology Comment RBC Morphology Normal morphology ESR 1 Sodium 136 L Potassium 4.2 Chloride 101 Carbon Dioxide 20 L BUN 18 Creatinine 0.90 Estimated GFR > 60.0 BUN/Creatinine Ratio 20.0 Glucose 155 H Uric Acid 8.3 Calcium 9.7 C-Reactive Protein 3.3 H Procalcitonin Fluid Color Fluid Appearance Fluid RBC Fld Tot Nucleated Cell Fluid Polynuclear WBCs Fluid Mononuclear WBCs Fluid Eosinophils Fluid Other Cells Fluid Crystals Body Fluid Clot 05/05/19 05/05/19 05/05/19 11:52 13:35 13:35 WBC RBC Hgb Hct MCV MCH MCHC RDW Plt Count Neut % (Auto) Lymph % (Auto) [place] % (Auto) Eos % (Auto) Baso % (Auto) Neut # (Auto) Lymph # (Auto) [place] # (Auto) Eos # (Auto) Baso # (Auto) Total Counted Seg Neutrophils % Band Neutrophils % Lymphocytes % (Manual) Monocytes % (Manual) Eosinophils % (Manual) Metamyelocytes % Neutrophils # (Manual) Platelet Estimate Plt Morphology Comment RBC Morphology ESR Sodium Potassium Chloride Carbon Dioxide BUN Creatinine Estimated GFR BUN/Creatinine Ratio Glucose Uric Acid Calcium C-Reactive Protein Procalcitonin 1.78 H Fluid Color Yellow Fluid Appearance Slightly cloudy Fluid RBC 415 Fld Tot Nucleated Cell 226 Fluid Polynuclear WBCs 19 Fluid Mononuclear WBCs 81 Fluid Eosinophils Not Reportable Fluid Other Cells Not Reportable Fluid Crystals None present Body Fluid Clot No clots present 05/06/19 05/06/19 05/06/19 05:20 05:20 05:20 WBC 33.7 H* RBC 4.82 Hgb 14.3 Hct 42.7 MCV 88.7 MCH 29.6 MCHC 33.4 RDW 13.5 Plt Count 389 Neut % (Auto) Not Reportable Lymph % (Auto) Not Reportable [place] % (Auto) Not Reportable Eos % (Auto) Not Reportable Baso % (Auto) Not Reportable Neut # (Auto) Lymph # (Auto) Not Reportable [place] # (Auto) Not Reportable Eos # (Auto) Baso # (Auto) Not Reportable Total Counted 100 Seg Neutrophils % 76.0 H Band Neutrophils % 15.0 H Lymphocytes % (Manual) 4.0 L Monocytes % (Manual) 4.0 Eosinophils % (Manual) 1.0 L Metamyelocytes % Neutrophils # (Manual) 13613 H Platelet Estimate Plt Morphology Comment RBC Morphology Normal morphology ESR 6 D Sodium 134 L Potassium 3.9 Chloride 102 Carbon Dioxide 24 BUN 18 Creatinine 0.84 Estimated GFR > 60.0 BUN/Creatinine Ratio 21.4 Glucose 120 H Uric Acid Calcium 8.7 C-Reactive Protein 21.5 H Procalcitonin 3.97 H Fluid Color Fluid Appearance Fluid RBC Fld Tot Nucleated Cell Fluid Polynuclear WBCs Fluid Mononuclear WBCs Fluid Eosinophils Fluid Other Cells Fluid Crystals Body Fluid Clot Assessment & Plan Assessment & Plan narrative: His knee aspirate was only 256 white blood cells with only 19% neutrophils, indicating that this is not a septic knee. He also has a good 20 degree arc of motion without discomfort, which also goes against a septic knee. This all appears to be a cellulitis. His white count is coming down, although he remains febrile and his C reactive protein is elevated today, higher than I would expect just for a seizure. Plan to continue IV antibiotics and see how this progresses. Currently he is on ceftriaxone and has had 1 dose. If this is not better by tomorrow, consider further imaging with MRI with contrast looking for possible abscess in the soft tissue.. Quality VTE Deep Vein Thrombosis/Pulmonary Embolism Present on Admission: No
--- NOTE | 2019-05-06 09:28 | PC.NURSE ---
Day Shift Lateral aspect of R knee appears to have decreased edema and erythema. Medial aspect of knee has increased redness beyond borders (new border drawn) and is painful to touch for pt. MD in room to assess as well.
[2019-05-06] MEDS: VANCOMYCIN 1,250 MG in SODIUM CHLORIDE 0.9% 250 ML IV ×2 (11:40→19:41)
--- NOTE | 2019-05-06 11:45 | CM.DANOTE ---
DCP Assessment: EMR Reviewed: Patient is a 39 yr old male who was admitted for Rt leg infection and Seizure. Patient dose not currently have a PCP or insurance. CM/RN met with patient at the bedside and explained role. Patient was alert and oriented x3 during CM/RN visit. Patient Currently lives in a single level home with his girl friend Rosaline. patient states he is Independent with all ADL's and drives at baseline. During AM rounds MD stated patient was going to need a CT scan today to help determine how extensive patients infection is. CM/RN spoke with MD and ask if patient would need IV antibiotics at D/C. Unknown at this time will determine after CT scan. CM/Rn spoke with patient about him not having insurance patient stated understanding. CM/RN asked if he thought financially he could qualify for Medicaid patient stated I should I can't work. CM/RN emailed patient accounts and they will talk with patient and maybe fill out an application for medicaid to assist patient with health care coverage. CM/Rn will follow up once this is done incase patient needs to D/C on IV antibiotics patient will need insurance help to cover this. I: self pay Plan: D/C home with either oral or IV antibiotics pending cultures and CT results. CM will follow patient to determine was needs to happen to facilitate D/C plan. Discharge Planning/Care Management CM Discharge Assessment Start: 05/06/19 11:43 Freq: Status: Active Protocol: Document 05/06/19 11:44 HS (Rec: 05/06/19 11:45 HS [id number]) Discharge Planning Assessment Assigned Loan Officer Assistant Aliya Joaquin RN DPOA/Assigned Designee Name Rosaline Almeida (girl Friend) Contact Information [phone] Advance Directives? No History Provided By Patient,Medical Record Has Patient been admitted in last 30 No days? Prior Living Arrangements House Household Members significant other Type of transporation used prior to Drives own vehicle admit Independent with ADL's Yes Is patient alert and oriented? Yes Caregiver for Another No Barriers to Discharge No Discharge Plan Home Referrals Initiated None needed Whiteboard Updated in Patient Room with Yes name and ext. # of Loan Officer Assistant Review Status In Process Next Review Type Continued Stay Review
--- NOTE | 2019-05-06 12:07 | PM.PN.1 ---
Subjective Subjective Date Patient Seen: 05/06/19 Interval history: He is seen today to follow-up his knee cellulitis/possible abscess and sepsis. The redness has been advancing on the medial aspect but receding laterally. He continues to be febrile at 102.1 with a pulse of 110 and a white blood count that dropped from 44.9 down to 33.7 with 15 bands still present. The knee aspiration culture is still pending. Orthopedics is following and is recommending an MRI scan tomorrow if the redness continues to advance to rule out abscess. The other worrisome component is the rising procalcitonin, rising from 1.78 up to 3.97 and the rising CRP, going from 3.3 up to 21.5. Exam Vital Signs (past 8 hours): - 05/06/19 06:12 05/06/19 06:22 05/06/19 08:00 Temperature 102.1 F H 102.1 F H 101.8 F H Pulse Rate 110 H 103 H Respiratory Rate 18 18 Blood Pressure 114/66 104/59 L Pulse Oximetry 96 94 05/06/19 08:50 Temperature Pulse Rate Respiratory Rate Blood Pressure Pulse Oximetry 96 Oxygen Delivery Method Room Air Oxygen Flow Rate 0 Narrative Exam Narrative: He is alert and oriented x3. He appears to be in moderate distress from the continued knee infection and fevers. Heart is regular rate and rhythm without murmur. Lungs are clear to auscultation bilaterally. Extremities have no ankle edema. There is advancing redness on the left knee medial aspect with receding redness from previously marked lines. The area that is red is warm and tender to the touch. There is no obvious abscess present. Objective Labs Result Diagrams: 05/06/19 05:20 05/06/19 05:20 Labs: Laboratory Results - last 24 hr 05/05/19 05/05/19 05/05/19 11:52 11:52 11:52 WBC RBC Hgb Hct MCV MCH MCHC RDW Plt Count Neut % (Auto) Clinical Account Liaison Lymph % (Auto) Clinical Account Liaison [place] % (Auto) Clinical Account Liaison Eos % (Auto) Clinical Account Liaison Baso % (Auto) Clinical Account Liaison Neut # (Auto) Clinical Account Liaison Lymph # (Auto) Clinical Account Liaison [place] # (Auto) Clinical Account Liaison Eos # (Auto) Clinical Account Liaison Baso # (Auto) Clinical Account Liaison Total Counted 100 Seg Neutrophils % 72.0 H Band Neutrophils % 20.0 H Lymphocytes % (Manual) 1.0 L Monocytes % (Manual) 6.0 Eosinophils % (Manual) Metamyelocytes % 1.0 H Neutrophils # (Manual) 01786 H Platelet Estimate Increased on smear Plt Morphology Comment RBC Morphology Normal morphology ESR 1 Sodium 136 L Potassium 4.2 Chloride 101 Carbon Dioxide 20 L BUN 18 Creatinine 0.90 Estimated GFR > 60.0 BUN/Creatinine Ratio 20.0 Glucose 155 H Uric Acid 8.3 Calcium 9.7 C-Reactive Protein 3.3 H Procalcitonin Fluid Color Fluid Appearance Fluid RBC Fld Tot Nucleated Cell Fluid Polynuclear WBCs Fluid Mononuclear WBCs Fluid Eosinophils Fluid Other Cells Fluid Crystals Body Fluid Clot 05/05/19 05/05/19 05/05/19 11:52 13:35 13:35 WBC RBC Hgb Hct MCV MCH MCHC RDW Plt Count Neut % (Auto) Lymph % (Auto) [place] % (Auto) Eos % (Auto) Baso % (Auto) Neut # (Auto) Lymph # (Auto) [place] # (Auto) Eos # (Auto) Baso # (Auto) Total Counted Seg Neutrophils % Band Neutrophils % Lymphocytes % (Manual) Monocytes % (Manual) Eosinophils % (Manual) Metamyelocytes % Neutrophils # (Manual) Platelet Estimate Plt Morphology Comment RBC Morphology ESR Sodium Potassium Chloride Carbon Dioxide BUN Creatinine Estimated GFR BUN/Creatinine Ratio Glucose Uric Acid Calcium C-Reactive Protein Procalcitonin 1.78 H Fluid Color Yellow Fluid Appearance Slightly cloudy Fluid RBC 415 Fld Tot Nucleated Cell 226 Fluid Polynuclear WBCs 19 Fluid Mononuclear WBCs 81 Fluid Eosinophils Not Reportable Fluid Other Cells Not Reportable Fluid Crystals None present Body Fluid Clot No clots present 05/06/19 05/06/19 05/06/19 05:20 05:20 05:20 WBC 33.7 H* RBC 4.82 Hgb 14.3 Hct 42.7 MCV 88.7 MCH 29.6 MCHC 33.4 RDW 13.5 Plt Count 389 Neut % (Auto) Not Reportable Lymph % (Auto) Not Reportable [place] % (Auto) Not Reportable Eos % (Auto) Not Reportable Baso % (Auto) Not Reportable Neut # (Auto) Lymph # (Auto) Not Reportable [place] # (Auto) Not Reportable Eos # (Auto) Baso # (Auto) Not Reportable Total Counted 100 Seg Neutrophils % 76.0 H Band Neutrophils % 15.0 H Lymphocytes % (Manual) 4.0 L Monocytes % (Manual) 4.0 Eosinophils % (Manual) 1.0 L Metamyelocytes % Neutrophils # (Manual) 49705 H Platelet Estimate Plt Morphology Comment RBC Morphology Normal morphology ESR 6 D Sodium 134 L Potassium 3.9 Chloride 102 Carbon Dioxide 24 BUN 18 Creatinine 0.84 Estimated GFR > 60.0 BUN/Creatinine Ratio 21.4 Glucose 120 H Uric Acid Calcium 8.7 C-Reactive Protein 21.5 H Procalcitonin 3.97 H Fluid Color Fluid Appearance Fluid RBC Fld Tot Nucleated Cell Fluid Polynuclear WBCs Fluid Mononuclear WBCs Fluid Eosinophils Fluid Other Cells Fluid Crystals Body Fluid Clot Assessment & Plan Assessment & Plan narrative: Jah Wei was admitted for antibiotic treatment of lower right extremity cellulitis and monitoring for additional seizures. 1. Lower right extremity cellulitis, acute, present on admission -he will continue on IV Vancomycin and IV ceftriaxone 2 g daily -monitor white count, which remains quite high today at 33 -fluid aspirate cultures are still pending -IV ketoralac and oral hydrocodone as needed for pain -The rising procalcitonin and CRP are concerning. CRP 3.3 up to 21.5 and Procalcitonin of 1.78 up to 3.97. -Orthopedics is following. MRI is planned for tomorrow if the redness continues to spread, fevers continue, markers continue to rise. 2. Seizure disorder, acute, present on admission -patient had a seizure just prior to admission -Continue home doses of devalproex and lamotrigine -Seizure precautions 3. Leukocytosis - Fevers and knee redness c/w possible abscess/cellulitis progression. No signs of necrotizing fascitis or sepsis. - Follow CBC. WBC drop overnight is c/w only an infectious cause of this presenting significant leukocytosis but if the WBC doesn't return to normal then a hematological etiology will also need to be evaluated. FEN: NS at 100 ml/hour, regular diet Patient was admitted inpatient as his stay is likely to exceed 2 midnights. VTE Prophylaxis: Bilateral SCDs Medications reconciled: yes Disposition: Probable discharge to home Code Status: Full Code Quality VTE Deep Vein Thrombosis/Pulmonary Embolism Present on Admission: No
[2019-05-06] MEDS: CEFTRIAXONE 2 GM/50 ML FROZ.PIGGY IV (14:05)
--- NOTE | 2019-05-06 19:37 | DI.CT.S_ITS ---
PROCEDURE: CT LE LT W CON INDICATIONS: Necrotizing Fasciitis TECHNIQUE: After the administration of intravenous contrast, 3 mm axial sections acquired of the right lower extremity , with coronal and sagittal reformats. COMPARISON: None. FINDINGS: Image quality: Excellent. Bones: No fracture or dislocation. No osseous erosions. No periosteal reaction . No suspicious intraosseous lesion. Soft tissues: There is a BB skin marker identified over the medial aspect of the right lower extremity at the level of the patella. There is moderate diffuse skin thickening of the medial aspect of the left lower extremity from the level of the mid thigh distally to the distal lower leg. There is moderate subcutaneous soft tissue edema throughout the left lower extremity without evidence for focal fluid collections. No CT evidence to suggest soft tissue gas. Although subcutaneous edema is predominantly noted superficial to the deep fascial layers, there is moderate edema tracking along the deeper layers between the vastus medialis, sartorius, gracilis, and the adjacent adductors. Small joint effusion. IMPRESSION: Moderate skin thickening and subcutaneous soft tissue edema of the right lower extremity with some edema extending into the deeper layers of the medial aspect of the right thigh between the vastus medialis, sartorius, gracilis, and the adjacent adductors. No CT evidence for soft tissue gas. No organized fluid collections. Findings may represent moderate cellulitis. However, early necrotizing fasciitis cannot be excluded based off imaging and if there is high clinical suspicion, recommend surgical consultation. Additionally, early compartment syndrome cannot be excluded by imaging. If there is suspicion for deep venous thrombosis, further evaluation with Doppler ultrasound can also be considered. No focal abnormalities identified over the medial aspect of the right knee at the site of patient's wound as marked by a skin BB. Findings were discussed with patient's nurse, Soledad at [id number], who will be relaying message to Dr. Pinedo. Dictated by: Woo Rendon M.D. on 05/06/2019 at 22:14 Approved by: Woo Rendon M.D. on 05/06/2019 at 22:51
[2019-05-06] MEDS: HYDROMORPHONE 2 MG INJ 1 MG IV ×2 (19:50→23:19)
[2019-05-06 20:12] LABS: Hematocrit 39.9 % (41-53); Hemoglobin 13.4 g/dL (13.5-17.5); Mean Corpuscular HGB Conc 33.5 % (30-36); Mean Corpuscular Hemoglobin 29.8 PG (26-34); Mean Corpuscular Volume 88.9 fL (80-100); Platelet Count 340 X10^3/uL (150-400); Red Blood Cell Count 4.49 X10^6/uL (4.5-5.9); Red Cell Distribution Width 13.4 % (11.6-14.8); White Blood Cell Count 25.4 X10^3/uL (4.5-11.0)
[2019-05-06 20:13] LABS: Add Manual Diff / Slide Review YES
[2019-05-06 20:16] LABS: Lactate (Lactic Acid) 0.9 mmol/L (0.7-2.1)
[2019-05-06 20:53] LABS: Neutrophils Absolute Manual 23876 /uL (3000-5900); Total Cells Counted 100
[2019-05-06 20:54] LABS: RBC Morphology Normal Morphology
--- NOTE | 2019-05-06 21:42 | PC.NURSE ---
1999- Patient is very febrile 101.7. There is increased erythema to the right inner thigh almost to the top near the groin. Patient is unable to weight bear due to pain. Patient states the pain is only tolerable if he is very still. Dr. Pinedo notified of assessment findings. Pain medication increased and given per order. Await CT scan labs ordered.
[2019-05-06] MEDS: LINEZOLID 600 MG/300 ML IV.SOLN IV (23:18)
[2019-05-06] MEDS: CEFEPIME 2 GM in SODIUM CHLORIDE 0.9% 100 ML 200 ML IV (23:55)
[2019-05-07] VITALS (9 sets, daily range): BP systolic 91–111; BP diastolic 57–74; PULSE 73–94; RESP 16–18; TEMP 36.1–37.7; O2SAT 94–100
[2019-05-07] MEDS: SODIUM CHLORIDE 0.9% 1,000 ML 100 ML IV (04:07)
[2019-05-07 05:52] LABS: Add Manual Diff / Slide Review NO; Basophils Absolute Auto 100 /uL (0-100); Basophils Percent Auto 0.3 % (0-2); Eosinophils Absolute Auto 1100 /uL (0-450); Eosinophils Percent Auto 5.3 % (2-4); Hematocrit 37.4 % (41-53); Hemoglobin 12.6 g/dL (13.5-17.5); Lymphocytes Absolute Auto 1200 /uL (1100-4500); Lymphocytes Percent Auto 5.8 % (25-40); Mean Corpuscular HGB Conc 33.6 % (30-36); Mean Corpuscular Hemoglobin 30.1 PG (26-34); Mean Corpuscular Volume 89.5 fL (80-100); Monocytes Absolute Auto 1000 /uL (0-900); Monocytes Percent Auto 4.6 % (3-14); Neutrophils Absolute Auto 17700 /uL (1500-7000); Platelet Count 321 X10^3/uL (150-400); Red Blood Cell Count 4.18 X10^6/uL (4.5-5.9); Red Cell Distribution Width 13.4 % (11.6-14.8); White Blood Cell Count 21.1 X10^3/uL (4.5-11.0)
--- NOTE | 2019-05-07 07:21 | DI.MRI.S_ITS ---
PROCEDURE: MR LOWER LEG RT WO/W CON INDICATIONS: r/o abscess, nec fascitis TECHNIQUE: Noncontrast coronal T1 spin echo and STIR, sagittal T1 spin echo with fat saturation and STIR, axial T1 spin echo and T2 fast spin echo with fat saturation. After the administration of contrast, axial/sagittal/coronal T1 spin echo with fat saturation through the right lower extremity from the upper to mid thigh to the upper right lower leg. COMPARISON: [facility], CT, CT LE LT WO CON, 05/06/2019, 21:31. FINDINGS: Image quality: Diagnostic. Bones: No acute fracture or dislocation is identified involving the osseous structures of the imaged portions of the right lower extremity. No abnormal osseous enhancement is appreciated. Soft tissues: Extensive subcutaneous edema of the right lower leg is identified that is predominantly seen along the anteromedial aspect of the distal right thigh. Superficial fascial edema is evident. There is edema that is seen extending into the deep fascial space within the region of the popliteal fossa. No drainable or loculated fluid collections are appreciated. There is mild edema evident involving the sartorius muscle with corresponding enhancement. There is also mild edema and enhancement involving the vastus medialis muscle. Otherwise, the remainder of the muscles of the right lower leg are grossly unremarkable. There is a moderate-sized knee joint effusion. Please note that the ligamentous, tendinous, and cartilaginous structures of the knee are not adequately evaluated on CT. IMPRESSION: 1. Subcutaneous edema about the right thigh is suggestive of cellulitis. There is no drainable fluid collection or definitive abscess. 2. Edema/enhancement of the sartorius and distal vastus medialis muscles is at least suggestive of myositis. 3. Superficial fasciitis. There is mild edema evident within the deep fascial planes near the level of the knee, raising suspicion for the possibility of necrotizing fasciitis. Clinical correlation is recommended. 4. No evidence of osteomyelitis. Dictated by: Tushar Clark M.D. on 05/07/2019 at 8:47 Approved by: Tushar Clark M.D. on 05/07/2019 at 8:59
--- NOTE | 2019-05-07 08:59 | P.PN_ITS ---
Subjective Subjective Date Patient Seen: 05/07/19 Time Patient Seen: 09:00 Interval history: Patient is having more pain in the leg. He is able to move his knee comfortably but it starts getting tight along the medial aspect of his thigh. No numbness or tingling. Antibiotics were changed to cefepime and vancomycin yesterday. Exam Vital Signs (past 8 hours): - 05/07/19 04:02 Temperature 99.4 F Pulse Rate 91 H Respiratory Rate 16 Blood Pressure 91/57 L Pulse Oximetry 98 Oxygen Delivery Method Room Air Oxygen Flow Rate 0 T-max 101.4?, has been afebrile since last night Const Orientation: alert and oriented x3 Extrem Other: Able to flex his knee past 60? before the thigh feels tight. Nontender along the medial lateral joint line of the knee. Increased erythema tracking up the medial aspect of the thigh as well as down over the upper medial calf. Objective Imaging CT scan left femur: My impression: Edema consistent with cellulitis along the medial aspect of the thigh. Also involving the VMO and adductors. No free air or gas pattern, no sign of necrotizing fasciitis Labs Result Diagrams: 05/07/19 05:41 05/06/19 05:20 Labs: Laboratory Results - last 24 hr 05/06/19 05/06/19 05/07/19 19:50 19:50 05:41 WBC 25.4 H 21.1 H RBC 4.49 L 4.18 L Hgb 13.4 L 12.6 L Hct 39.9 L 37.4 L MCV 88.9 89.5 MCH 29.8 30.1 MCHC 33.5 33.6 RDW 13.4 13.4 Plt Count 340 321 Neut % (Auto) Not Reportable 84.0 H Lymph % (Auto) Not Reportable 5.[address] [place] % (Auto) Not Reportable 4.6 Eos % (Auto) Not Reportable 5.3 H Baso % (Auto) Not Reportable 0.3 Neut # (Auto) 72992 H Lymph # (Auto) Not Reportable 1200 [place] # (Auto) Not Reportable 1000 H Eos # (Auto) 1100 H Baso # (Auto) Not Reportable 100 Total Counted 100 Seg Neutrophils % 94.0 H Lymphocytes % (Manual) 3.0 L Atypical Lymphs % 1.0 H Monocytes % (Manual) 2.0 Neutrophils # (Manual) 48434 H RBC Morphology Normal morphology Lactate 0.9 Assessment & Plan Assessment & Plan narrative: He has been afebrile since his antibiotics were changed last night but he does have increased cellulitis on exam with corresponding edema on the CT scan. No sign of abscess or necrotizing fasciitis. He just had his left leg MRI with contrast. The images are still not up on the system yet. At this point I think this is primarily a cellulitis with some myositis, but no surgical indications as of now. I will recheck later once his MRI images are available. Quality VTE Deep Vein Thrombosis/Pulmonary Embolism Present on Admission: No
[2019-05-07] MEDS: VANCOMYCIN 1,250 MG in SODIUM CHLORIDE 0.9% 250 ML IV ×3 (09:20→23:33)
[2019-05-07] MEDS: DOCUSATE 100 MG CAPSULE PO ×2 (09:21→20:49)
[2019-05-07] MEDS: DIVALPROEX DR 250 MG TABLET PO ×2 (09:21→20:49)
[2019-05-07] MEDS: KETOROLAC 15 MG/ML VIAL IV ×2 (09:21→20:49)
[2019-05-07] MEDS: ENOXAPARIN 40 MG/0.4 ML SYRINGE SUBCUT (09:21)
[2019-05-07] MEDS: lamoTRIgine 100 MG TABLET 200 MG PO ×2 (09:22→20:49)
[2019-05-07] MEDS: HYDROCODONE/ACET 5/325 TABLET 1 TAB PO ×2 (09:22→20:49)
--- NOTE | 2019-05-07 11:36 | CM.DPC ---
DCP Cont: Per MD, continuing to consult with Ortho team regarding pt's infection in his leg and currently surgery does not seem to be indicated as pt making slow progress with IV-Abx and swelling slowly decreasing and leg now draining some at the knee. Pt had MRI this morning and CT scan. SW met bedside with pt and explained role and he states he was able to finally put weight on his right leg as yesterday he was non-weight baring due to pain. Pt states he is still painful but significantly reduced since yesterday. Pt states he is hopeful to d/c home with life partner/suman Waggoner as soon as he is medically stable and she can provide transport at d/c. SW discussed that pt's culture results are still pending towards determining how long he will need IV-Abx vs transition to oral abx. SW discussed that due to pt's lack of insurance, if he needs IV-Abx he will remain in the hospital (or maybe swing bed??) as home infusion is not an option without insurance. Pt hopeful he can transition to oral medications soon. Plan: SW to follow for MRI, blood cultures results to return towards determining how long IV-Abx needed before transition to oral abx. Pt's lack of insurance is a barrier to discharge if IV medications needed. EVELIN Morelos
[2019-05-07] MEDS: CEFEPIME 2 GM in SODIUM CHLORIDE 0.9% 100 ML 200 ML IV (12:09)
--- NOTE | 2019-05-07 15:01 | PM.PN.1 ---
Subjective Subjective Date Patient Seen: 05/07/19 Interval history: Patient is 39-year-old male admitted with right leg cellulitis. MRI without evidence of free air or abscess. He spontaneously opened up a small superficial abscess on the medial knee. There was some pus which was sent for culture and subsequently it has stopped draining. Patient notes he can move his knee much more easily since the area opened up. Exam Vital Signs (past 8 hours): - 05/07/19 10:30 05/07/19 12:30 Temperature 99.6 F 97.4 F L Pulse Rate 94 H 84 Respiratory Rate 16 16 Blood Pressure 110/66 97/60 Pulse Oximetry 94 96 Oxygen Delivery Method Room Air Oxygen Flow Rate 0 Narrative Exam Narrative: General: Alert and cooperative male appearing comfortable Extremities: There is approximately 1 cm opening on the right medial knee which is not draining at this time. There is macular erythema and subcu edema of the leg from below the knee extending medially to the mid thigh. Objective Labs Result Diagrams: 05/07/19 05:41 05/06/19 05:20 Labs: Laboratory Results - last 24 hr 05/06/19 05/06/19 05/07/19 19:50 19:50 05:41 WBC 25.4 H 21.1 H RBC 4.49 L 4.18 L Hgb 13.4 L 12.6 L Hct 39.9 L 37.4 L MCV 88.9 89.5 MCH 29.8 30.1 MCHC 33.5 33.6 RDW 13.4 13.4 Plt Count 340 321 Neut % (Auto) Not Reportable 84.0 H Lymph % (Auto) Not Reportable 5.8 L [place] % (Auto) Not Reportable 4.6 Eos % (Auto) Not Reportable 5.3 H Baso % (Auto) Not Reportable 0.3 Neut # (Auto) 94359 H Lymph # (Auto) Not Reportable 1200 [place] # (Auto) Not Reportable 1000 H Eos # (Auto) 1100 H Baso # (Auto) Not Reportable 100 Total Counted 100 Seg Neutrophils % 94.0 H Lymphocytes % (Manual) 3.0 L Atypical Lymphs % 1.0 H Monocytes % (Manual) 2.0 Neutrophils # (Manual) 47675 H RBC Morphology Normal morphology Lactate 0.9 Assessment & Plan Assessment & Plan narrative: 1. Lower right extremity cellulitis, acute, present on admission -likely Staph bacteria secondary to surface injury wood shrapnel -fever resolving and WBC improving on antibiotic therapy -continue IV vancomycin, discontinued other antibiotics -superficial spontaneous draining of pustule or abscess on 05/06 and fluid sent for culture -blood cultures negative -MRI without abscess or free air, reviewed by ortho Dr. Osorio Sandoval -IV ketoralac and oral hydrocodone as needed for pain 2. Seizure disorder, acute, present on admission -patient had a seizure just prior to admission -Continue home doses of devalproex and lamotrigine -Seizure precautions DVT prophylaxis: Lovenox Quality VTE Deep Vein Thrombosis/Pulmonary Embolism Present on Admission: No
--- NOTE | 2019-05-07 21:27 | PC.NURSE ---
Desire shift note: Patient awake and alert, cooperative. Erythema to right thigh/knee/inner groin, no increased noted past marked borders, area warm, tender, and edematous. Dressing to right knee, gauze secured with tegaderm, with marked shadow. No active bleeding or additional drainage. Tolerating ambulation in room, states he is able to bear weight with min/moderate pain, much improved from previous day. 4/10 pain, controlled with [place] as ordered. Expressed frustration regarding his hospitalization and being away from [facility], however understands importance of IV antibiotic therapy. Seizure precautions maintained. T max 99.9, HR mid 80's. Contact precautions maintained. Calls appropriately for staff assist.
[2019-05-08 05:15] VITALS: BP 95/67; PULSE 82; RESP 20; TEMP 37.4; O2SAT 98
[2019-05-08 06:03] LABS: Add Manual Diff / Slide Review NO; Basophils Absolute Auto 100 /uL (0-100); Basophils Percent Auto 0.4 % (0-2); Eosinophils Absolute Auto 1200 /uL (0-450); Eosinophils Percent Auto 6.7 % (2-4); Hematocrit 35.4 % (41-53); Hemoglobin 11.7 g/dL (13.5-17.5); Lymphocytes Absolute Auto 1800 /uL (1100-4500); Lymphocytes Percent Auto 10.1 % (25-40); Mean Corpuscular Hemoglobin 29.2 PG (26-34); Mean Corpuscular Volume 88.5 fL (80-100); Monocytes Absolute Auto 1200 /uL (0-900); Monocytes Percent Auto 7.1 % (3-14); Neutrophils Absolute Auto 13400 /uL (1500-7000); Neutrophils Percent Auto 75.7 % (50-75); Platelet Count 329 X10^3/uL (150-400); Red Cell Distribution Width 13.2 % (11.6-14.8); White Blood Cell Count 17.7 X10^3/uL (4.5-11.0)
[2019-05-08 06:08] LABS: BUN Creatinine Ratio 10.7 (6-22); Blood Urea Nitrogen 9 mg/dL (9-20); Calcium 8.4 mg/dL (8.4-10.2); Carbon Dioxide 29 mmol/L (22-32); Chloride 103 mmol/L (98-107); Estimated Glomerular Filt Rate > 60.0 mL/min (>60); Glucose 105 mg/dL (70-100); HEMOLYSIS < 15 (0-50); Potassium 3.9 mmol/L (3.4-5.1); Sodium 137 mmol/L (137-145)
[2019-05-08 07:55] VITALS: BP 110/57; PULSE 79; RESP 18; TEMP 36.7; O2SAT 98
[2019-05-08 08:34] LABS: Vancomycin Trough 7.7 ug/mL (10-20)
[2019-05-08] MEDS: DIVALPROEX DR 250 MG TABLET PO ×2 (08:52→20:24)
[2019-05-08] MEDS: DOCUSATE 100 MG CAPSULE PO ×2 (08:52→20:24)
[2019-05-08] MEDS: ENOXAPARIN 40 MG/0.4 ML SYRINGE SUBCUT (08:52)
[2019-05-08] MEDS: lamoTRIgine 100 MG TABLET 200 MG PO ×2 (08:52→20:24)
[2019-05-08] MEDS: SODIUM CHLORIDE 0.9% FLUSH 10 ML IV ×2 (08:53→20:24)
[2019-05-08] MEDS: VANCOMYCIN TROUGH 1 REQUEST MISC (08:53)
--- NOTE | 2019-05-08 09:27 | PM.PN.1 ---
Subjective Subjective Date Patient Seen: 05/08/19 Time Patient Seen: 09:27 Interval history: He is doing much better. Able to move the knee more comfortably. Yesterday, the scab came off his abrasion site and a little bit of pus drained off but nothing since then. Exam Vital Signs (past 8 hours): - 05/08/19 05:15 05/08/19 07:55 Temperature 99.4 F 98.1 F Pulse Rate 82 79 Respiratory Rate 20 18 Blood Pressure 95/67 110/57 L Pulse Oximetry 98 98 Oxygen Delivery Method Room Air Oxygen Flow Rate 0 Const Orientation: alert and oriented x3 Extrem Other: Right knee greatly decreased erythema and induration along the thigh and the calf compared to yesterday. Full 90 degree range of motion without discomfort. No fluctuance or drainage at the side of his abrasion today. Minimal dry serosanguineous drainage on the dressing. Objective Labs Result Diagrams: 05/08/19 05:24 05/08/19 05:24 Labs: Laboratory Results - last 24 hr 05/08/19 05/08/19 05/08/19 05:24 05:24 07:35 WBC 17.7 H RBC 4.00 L Hgb 11.7 L Hct 35.4 L MCV 88.5 MCH 29.2 MCHC 33.0 RDW 13.2 Plt Count 329 Neut % (Auto) 75.7 H Lymph % (Auto) 10.1 L [place] % (Auto) 7.1 Eos % (Auto) 6.7 H Baso % (Auto) 0.4 Neut # (Auto) 71699 H Lymph # (Auto) 1800 [place] # (Auto) 1200 H Eos # (Auto) 1200 H Baso # (Auto) 100 Sodium 137 Potassium 3.9 Chloride 103 Carbon Dioxide 29 BUN 9 Creatinine 0.84 Estimated GFR > 60.0 BUN/Creatinine Ratio 10.7 Glucose 105 H Calcium 8.4 Vancomycin Trough 7.7 L the purulence from the abrasion was cultured yesterday. 4+ Gram-positive cocci on g stain, no growth today. Assessment & Plan Assessment & Plan narrative: He is doing much better since we switched motor vancomycin. He has remained afebrile and has had a significant improvement in his cellulitis. I think the drainage yesterday happened just when the scab came off but there does not appear to be any active purulence at this time over the abrasion site. There is no evidence of any abscess underneath this on the MRI. I do not see any surgical indication. I discussed his care with Dr. Martinez. Most likely staph infection based on the cultures from yesterday and his response to vancomycin. Continue with IV vancomycin for right now and plan to discharge home on orals in the next few days. Quality VTE Deep Vein Thrombosis/Pulmonary Embolism Present on Admission: No
[2019-05-08] MEDS: VANCOMYCIN 1,250 MG in SODIUM CHLORIDE 0.9% 250 ML IV (10:34)
[2019-05-08 11:00] VITALS: BP 112/67; PULSE 81; RESP 18; TEMP 36.8; O2SAT 98
--- NOTE | 2019-05-08 13:08 | CM.DPC ---
DCP continued: EMR reviewed: during AM rounds patient stated his leg is feeling much better and redness and swelling has decreased also. Dr. vazquez stated patient will have IV antibiotics today but will most likely D/C home tomorrow or Thursday with Oral antibiotics. Patient lives with his girl friend Rosaline who will be assisting him when he goes home. Aliya Joaquin RN
[2019-05-08] MEDS: HYDROCODONE/ACET 5/325 TABLET 1 TAB PO (14:25)
--- NOTE | 2019-05-08 15:38 | P.PN_ITS ---
Subjective Subjective Date Patient Seen: 05/08/19 Interval history: Patient was seen twice today. Earlier he had noted substantial improvement in erythema of the right leg and able to bend the knee more easily. This afternoon he started to notice more redness and swelling and pain after he took a shower. His wound culture is growing heavy group a strep Exam Vital Signs (past 8 hours): - 05/08/19 07:55 05/08/19 11:00 Temperature 98.1 F 98.3 F Pulse Rate 79 81 Respiratory Rate 18 18 Blood Pressure 110/57 L 112/67 Pulse Oximetry 98 98 Oxygen Delivery Method Room Air Oxygen Flow Rate 0 Narrative Exam Narrative: General: Alert and cooperative male appearing comfortable Extremities: There is approximately 1 cm opening on the right medial knee which is not draining at this time. There is receding macular erythema and subcu edema of the leg from below the knee extending medially to the mid thigh Objective Labs Result Diagrams: 05/08/19 05:24 05/08/19 05:24 Labs: Laboratory Results - last 24 hr 05/08/19 05/08/19 05/08/19 05:24 05:24 07:35 WBC 17.7 H RBC 4.00 L Hgb 11.7 L Hct 35.4 L MCV 88.5 MCH 29.2 MCHC 33.0 RDW 13.2 Plt Count 329 Neut % (Auto) 75.7 H Lymph % (Auto) 10.1 L [place] % (Auto) 7.1 Eos % (Auto) 6.7 H Baso % (Auto) 0.4 Neut # (Auto) 50704 H Lymph # (Auto) 1800 [place] # (Auto) 1200 H Eos # (Auto) 1200 H Baso # (Auto) 100 Sodium 137 Potassium 3.9 Chloride 103 Carbon Dioxide 29 BUN 9 Creatinine 0.84 Estimated GFR > 60.0 BUN/Creatinine Ratio 10.7 Glucose 105 H Calcium 8.4 Vancomycin Trough 7.7 L Assessment & Plan Assessment & Plan narrative: 1. Right lower extremity cellulitis, acute, present on admission -had increased pain and swelling in the back of the thigh and the knee after shower this afternoon 05/07 with exam looking about the same, ordered venous duplex ultrasound to rule out septic thrombophlebitis -wound culture from scab that opened up is growing heavy strep pyogenes -discontinued vancomycin 05/05 4:00 p.m. -started penicillin G 4 million units IV q.4 hours which is choice IV antibiotic treatment for invasive group a strep -can be discharged on high-dose amoxicillin once there is sufficient clinical improvement -patient overall better with receding erythema and decreased pain on antibiotic and since scab opened up and drained a little pus on Thursday -fever resolved, WBC decreasing and blood cultures negative -MRI without abscess or free air, reviewed by ortho Dr. Osorio Sandoval -IV ketoralac and oral hydrocodone as needed for pain 2. Seizure disorder, acute, present on admission, stable -patient had a seizure just prior to admission -Continue home doses of devalproex and lamotrigine -can DC seizure precaution Quality VTE Deep Vein Thrombosis/Pulmonary Embolism Present on Admission: No
[2019-05-08 15:40] VITALS: BP 117/63; PULSE 76; RESP 18; TEMP 37.3; O2SAT 99
[2019-05-08 17:00] VITALS: O2SAT 96
[2019-05-08] MEDS: WATER IV ×2 (17:12→20:24)
[2019-05-08] MEDS: PENICILLIN POTASSIUM IV ×2 (17:12→20:24)
[2019-05-08] MEDS: DEXTROSE 5% IV ×2 (17:12→20:24)
--- NOTE | 2019-05-08 19:32 | PC.NURSE ---
Addendum entered by Angeles Case R.N. 05/08/19 21:54: Erythema to right inner knee, thigh, and inner groin continue with tenderness, edema, and warm to touch. Non draining open wound to knee from previous spontaneous drainage exit point. Taut edema noted mostly to posterior knee. Second dose of Penicillin G administered (IVPB) no s/sx of allergic reaction. Minimal pain at rest, 2-3/10, declined medication. Tolerating weight bearing/ambulation in the room. Sz precautions maintained. Refusing SCDs, discussed importance of use, verbalized understanding. Original Note: Desire shift note: Initiated first dose of Penicillin G (IVPB), remain at patient bedside during infusion. No s/sx of allergic reaction. Afebrile. VSS. Alert, oriented, pleasant. Calls appropriately for staff assistance.
[2019-05-08 19:48] VITALS: BP 123/69; PULSE 79; RESP 18; TEMP 36.9
[2019-05-09] VITALS (9 sets, daily range): BP systolic 104–124; BP diastolic 59–78; PULSE 67–81; RESP 16–18; TEMP 36.3–37.7; O2SAT 95–99
[2019-05-09] MEDS: PENICILLIN POTASSIUM IV ×6 (01:05→20:54)
[2019-05-09] MEDS: WATER IV ×6 (01:05→20:54)
[2019-05-09] MEDS: DEXTROSE 5% IV ×6 (01:05→20:54)
--- NOTE | 2019-05-09 08:16 | P.PN_ITS ---
Subjective Subjective Date Patient Seen: 05/09/19 Interval history: Jah Wei is a 39-year-old male with a past medical history significant for seizure disorder who presented to the ED for the 2nd time due to fever and a seizure that may likely precipitated by cellulitis of the right lower thigh. The patient is resting in bed comfortably. He is eager to go home. He reports he is very active and is ?going stir crazy.? He endorses tenderness to palpation of medial knee. Per Orthopedic surgery, Dr. Sandoval, recommend patient stay additional day for IV antibiotics due to persistent erythema of right thigh and medial aspect of knee. He has no other complaints and denies he adache, shortness of breath, chest pain, abdominal pain, nausea, vomiting, fever, chills, dysuria, diarrhea or constipation. He is voiding without difficulty. Patient has no bowel movement recorded since admission and a bowel regimen has been implemented. He is up ambulating independently. Exam Vital Signs (past 8 hours): - 05/09/19 00:37 05/09/19 04:00 Temperature 99.6 F Pulse Rate 76 72 Respiratory Rate 16 18 Blood Pressure 118/59 L 104/64 Pulse Oximetry 95 97 Oxygen Delivery Method Room Air Oxygen Flow Rate 0 Narrative Exam Narrative: General: Middle-aged male sitting in bed and in no acute distress, well- developed, well-nourished, mildly anxious but appropriately interactive. HEENT: Normocephalic, atraumatic. External ears without defect. Pupils equal, round, and reactive to light and accommodation. Anicteric sclerae, moist conjunctivae, and no lid lag. Neck: Supple with full range of motion. No lymphadenopathy or thyromegaly. Cardiovascular: Regular rate and rhythm without murmurs, rubs, or gallops appreciated. Pulmonary: Clear to auscultation bilaterally without crackles, wheezes, or rhonchi. Normal respiratory effort with no use of accessory muscles. Abdomen: Bowel tones present. Soft, nontender, nondistended. No hepatosplenomegaly or masses appreciated. Extremities: No clubbing, cyanosis, or edema. Skin: Right lower extremity with erythema of medial aspect of mid thigh and knee. Mild erythema of calf. Tenderness to palpation over medial aspect of right knee. Neurological: Cranial nerves grossly intact. Psychiatric: Mildly anxious mood and affect. Alert and oriented to person, place, and time. Objective Labs Result Diagrams: 05/09/19 08:35 05/09/19 08:35 Labs: Laboratory Results - last 24 hr 05/08/19 07:35 Vancomycin Trough 7.7 L Assessment & Plan Assessment & Plan narrative: Jah Wei is a 39-year-old male with a past medical history significant for seizure disorder who presented to the ED for the 2nd time due to fever and a seizure that may likely precipitated by cellulitis of the right lower thigh. 1. Acute right lower extremity cellulitis, present on admission. Active. -Patient presented with erythema, edema, and pain of right thigh and knee after would chip injury. -Venous duplex ultrasound negative for DVT and ruled out septic thrombophlebitis. -Wound culture from purulent material expectorated from scab that opened up is growing heavy strep pyogenes. -Overall patient improving clinically with receding erythema and decreased pain, his fever has resolved, WBC is decreasing and blood cultures have no growth to date. -MRI without abscess or free air and was reviewed by ortho Dr. Osorio Sandoval. -Continue IV ketoralac 15 mg every 6 hours as needed for [id number] pain and hydrocodone as needed for pain -Discontinued vancomycin and started penicillin G 4 million units IV every 4 hours which is choice IV antibiotic treatment for invasive group a strep. Plan to discharge on high-dose amoxicillin once there is sufficient clinical impr ovement. Ortho recommends 1 additional day of IV antibiotics. -Consulted orthopedic surgery, Dr. Sandoval, and we appreciate his time and care of the patient. 2. Seizure disorder with recent seizure, present on admission. Stable. -Patient had a seizure just prior to admission. -Continue home divalproex 250 mg twice daily and lamotrigine 200 mg twice daily. Code status: Full code DVT prophylaxis: Enoxaparin Disposition: Patient likely to discharge home in next 1-2 days depending on improvement cellulitis. Quality VTE Deep Vein Thrombosis/Pulmonary Embolism Present on Admission: No
[2019-05-09 08:47] LABS: Add Manual Diff / Slide Review NO; Basophils Absolute Auto 100 /uL (0-100); Basophils Percent Auto 0.7 % (0-2); Eosinophils Absolute Auto 1200 /uL (0-450); Eosinophils Percent Auto 8.4 % (2-4); Hematocrit 38.9 % (41-53); Hemoglobin 13.3 g/dL (13.5-17.5); Lymphocytes Absolute Auto 1900 /uL (1100-4500); Lymphocytes Percent Auto 12.8 % (25-40); Mean Corpuscular HGB Conc 34.2 % (30-36); Mean Corpuscular Hemoglobin 30.1 PG (26-34); Mean Corpuscular Volume 87.9 fL (80-100); Monocytes Absolute Auto 1000 /uL (0-900); Monocytes Percent Auto 6.7 % (3-14); Neutrophils Absolute Auto 10500 /uL (1500-7000); Neutrophils Percent Auto 71.4 % (50-75); Platelet Count 420 X10^3/uL (150-400); Red Blood Cell Count 4.43 X10^6/uL (4.5-5.9); Red Cell Distribution Width 13.3 % (11.6-14.8); White Blood Cell Count 14.7 X10^3/uL (4.5-11.0)
--- NOTE | 2019-05-09 09:00 | DI.US.S_ITS ---
PROCEDURE: US PERIPH VENOUS LOW EXTREM RT INDICATIONS: R/O DVT, R/O ABSCESS TECHNIQUE: Real-time imaging, as well as color and pulse Doppler interrogation, were performed of the lower extremity deep veins from the inguinal ligament to the popliteal fossa. COMPARISON: None. FINDINGS: The common femoral, femoral and popliteal veins are normally compressible, and free of intraluminal thrombus. Color and pulse Doppler demonstrate normal phasic intraluminal flow. There is normal augmentation response to distal compression maneuver. No abscess is identified. IMPRESSION: Negative right lower extremity duplex ultrasound for DVT. Negative for abscess. Dictated by: Yayo Meyer M.D. on 05/09/2019 at 10:59 Approved by: Yayo Meyer M.D. on 05/09/2019 at 10:59
[2019-05-09 09:03] LABS: BUN Creatinine Ratio 12.3 (6-22); Blood Urea Nitrogen 9 mg/dL (9-20); Calcium 8.9 mg/dL (8.4-10.2); Carbon Dioxide 29 mmol/L (22-32); Chloride 103 mmol/L (98-107); Estimated Glomerular Filt Rate > 60.0 mL/min (>60); Glucose 106 mg/dL (70-100); HEMOLYSIS < 15 (0-50); Potassium 4.2 mmol/L (3.4-5.1); Sodium 139 mmol/L (137-145)
[2019-05-09] MEDS: DOCUSATE 100 MG CAPSULE PO ×2 (09:03→20:52)
[2019-05-09] MEDS: DIVALPROEX DR 250 MG TABLET PO ×2 (09:03→20:53)
[2019-05-09] MEDS: ENOXAPARIN 40 MG/0.4 ML SYRINGE SUBCUT (09:03)
[2019-05-09] MEDS: lamoTRIgine 100 MG TABLET 200 MG PO ×2 (09:03→20:54)
[2019-05-09 09:30] LABS: Procalcitonin 0.73 ng/mL (<0.5)
--- NOTE | 2019-05-09 09:30 | PM.PN.1 ---
Subjective Subjective Date Patient Seen: 05/09/19 Time Patient Seen: 09:31 Interval history: He is doing better. He can stand easier. The tightness in the thigh is much better although it is still present just medial to the knee. Exam Vital Signs (past 8 hours): - 05/09/19 04:00 05/09/19 08:20 Temperature 97.3 F L Pulse Rate 72 74 Respiratory Rate 18 16 Blood Pressure 104/64 109/60 Pulse Oximetry 97 97 Oxygen Delivery Method Room Air Oxygen Flow Rate 0 Const Orientation: alert and oriented x3 Extrem Other: Right leg appears to have some increased erythema along the medial thigh but much better in the calf. Decreased swelling with some wrinkling of the skin. Mild tenderness along the medial mid thigh, more tender along the distal thigh. Objective Labs Result Diagrams: 05/09/19 08:35 05/09/19 08:35 Labs: Laboratory Results - last 24 hr 05/09/19 05/09/19 05/09/19 08:35 08:35 08:35 WBC 14.7 H RBC 4.43 L Hgb 13.3 L Hct 38.9 L MCV 87.9 MCH 30.1 MCHC 34.2 RDW 13.3 Plt Count 420 H Neut % (Auto) 71.4 Lymph % (Auto) 12.8 L [place] % (Auto) 6.7 Eos % (Auto) 8.4 H Baso % (Auto) 0.7 Neut # (Auto) 45584 H Lymph # (Auto) 1900 [place] # (Auto) 1000 H Eos # (Auto) 1200 H Baso # (Auto) 100 Sodium 139 Potassium 4.2 Chloride 103 Carbon Dioxide 29 BUN 9 Creatinine 0.73 Estimated GFR > 60.0 BUN/Creatinine Ratio 12.3 Glucose 106 H Calcium 8.9 Procalcitonin 0.73 H Assessment & Plan Assessment & Plan narrative: His cultures have group a strep which is pansensitive and he has been switched over to penicillin. He still has a tough erythema and swelling that I feel he most likely will need 1 more day of IV antibiotics unless this drastically changes through the course of the day. Quality VTE Deep Vein Thrombosis/Pulmonary Embolism Present on Admission: No
[2019-05-09] MEDS: SODIUM CHLORIDE 0.9% FLUSH 10 ML IV ×2 (11:46→20:52)
--- NOTE | 2019-05-09 15:15 | CM.DPC ---
DCP continued: EMR reviewed: During AM rounds Dr. Araya stated that the plan is patient will be here for another day or two on IV antibiotics until redness and swelling on patients leg is down and will be able to transition to Oral antibiotics and D/C home with significant other. D/C plan is still home with Significant other when medically stable. Aliya Joaquin Rn
--- NOTE | 2019-05-09 23:53 | PC.NURSE ---
Patient is alert and oriented. Breath sounds CTA with RA sat of 97%. HRR. Denies nausea. BT present and abdomen is soft. Denies dysuria, frequency or urgency; voiding per urinal. Able to move self in bed. Scabbed abrasion on right knee with erythema/swelling of medial aspect of right knee/thigh. Lower right leg is lightly pink. States pain is 4/10 with movement but 0/10 when at rest and declines offer of pain med or ice pack. Keeping right leg elevated on pillows. CMS is intact. Refusing SCD's stating he is getting out of bed frequently. Denies weakness or unsteadiness when up. Refusing bed alarm stating he will call if he needs assistance. Seizure pads on bed. Fall risk score is moderate.
[2019-05-10] MEDS: PENICILLIN POTASSIUM IV ×3 (00:51→08:15)
[2019-05-10] MEDS: WATER IV ×3 (00:51→08:15)
[2019-05-10] MEDS: DEXTROSE 5% IV ×3 (00:51→08:15)
[2019-05-10] MEDS: SODIUM CHLORIDE 0.9% FLUSH 10 ML IV ×3 (00:52→08:16)
[2019-05-10 05:00] VITALS: BP 111/77; PULSE 60; RESP 17; TEMP 36.4; O2SAT 95
[2019-05-10 05:55] LABS: Add Manual Diff / Slide Review NO; Basophils Absolute Auto 100 /uL (0-100); Eosinophils Absolute Auto 1400 /uL (0-450); Eosinophils Percent Auto 10.6 % (2-4); Hematocrit 37.8 % (41-53); Hemoglobin 12.9 g/dL (13.5-17.5); Lymphocytes Absolute Auto 3000 /uL (1100-4500); Mean Corpuscular HGB Conc 34.1 % (30-36); Mean Corpuscular Volume 87.9 fL (80-100); Monocytes Absolute Auto 1100 /uL (0-900); Neutrophils Absolute Auto 7500 /uL (1500-7000); Neutrophils Percent Auto 57.4 % (50-75); Platelet Count 466 X10^3/uL (150-400); Red Blood Cell Count 4.31 X10^6/uL (4.5-5.9); Red Cell Distribution Width 13.3 % (11.6-14.8); White Blood Cell Count 13.1 X10^3/uL (4.5-11.0)
[2019-05-10 06:27] LABS: Procalcitonin 0.39 ng/mL (<0.5)
[2019-05-10 08:00] VITALS: BP 106/70; PULSE 76; RESP 18; TEMP 36.5; O2SAT 96
[2019-05-10] MEDS: DIVALPROEX DR 250 MG TABLET PO (08:16)
[2019-05-10] MEDS: ENOXAPARIN 40 MG/0.4 ML SYRINGE SUBCUT (08:16)
[2019-05-10] MEDS: lamoTRIgine 100 MG TABLET 200 MG PO (08:16)
[2019-05-10] MEDS: DOCUSATE 100 MG CAPSULE PO (08:16)
--- NOTE | 2019-05-10 08:31 | PM.DS.1 ---
History of Present Illness History of Present Illness Date Patient Seen: 05/05/19 Chief complaint: right leg infection Narrative: Written by Philomena LI: Jah Wei is a 39-year-old male with a seizure disorder who presented for 2nd time to the emergency department today with fever and a seizure that may have been associated with being treated for a cellulitis of the right lower thigh. Patient had apparently sustained a laceration of his right lower thigh just above the patella while cutting wood approximately 1 week ago. He presented to the emergency department yesterday night and was given oral doxycycline and discharged. He developed a fever this morning and at some point had a seizure and represented today. He states he had a fever of 100.4, had been having nausea and vomiting causing him to have generalized chest pain. He denies shortness of breath, abdominal pain, diarrhea, constipation, dysuria, or numbing and tingling. Patient does not have a PCP. He lives [place] of [facility] and sees a neurologist at [facility] for his seizure follow-ups and medication prescriptions. He states he will not go to [facility] for any of his medical care. In his initial presentation to the ED last night, they did a fluid aspirate and anaerobic and aerobic cultures are pending. Discharge Providers Provider Date of admission: 05/05/19 14:06 Discharge Date: 05/10/19 Consults: 05/05/19 13:42 Consult to Orthopedic Surgery Stat Comment: Consulting Provider: Herberth Terrazas Reason for consultation: Right knee cellulitis Has provider been notified: Yes 05/05/19 15:50 Consult to Orthopedic Surgery Routine Comment: Consulting Provider: Herberth Terrazas Reason for consultation: cellulitis poss septic joint Has provider been notified: Yes Discharge provider: Gloria Araya DO Summary Hospital Course Discharge Diagnosis: 1. Acute right lower extremity cellulitis, present on admission. Resolving. 2. Seizure disorder with recent seizure, present on admission. Stable. Hospital Course: Jah Wei is a 39-year-old male with a past medical history significant for seizure disorder who presented to the ED for the 2nd time due to fever and a seizure that may likely precipitated by cellulitis of the right lower thigh. 1. Acute right lower extremity cellulitis, present on admission. Resolving. -Patient presented with erythema, edema, and pain of right thigh and knee after would chip injury. -Venous duplex ultrasound negative for DVT and ruled out septic thrombophlebitis. -Wound culture from purulent material expectorated from scab that opened up is growing heavy strep pyogenes. -Overall patient improving clinically with receding erythema and decreased pain, his fever has resolved, WBC is decreasing and blood cultures have no growth to date. -MRI without abscess or free air and was reviewed by ortho Dr. Osorio Sandoval. -Continued IV ketoralac 15 mg every 6 hours as needed for [id number] pain and hydrocodone as needed for pain. -Discontinued vancomycin and started penicillin G 4 million units IV every 4 hours which is choice IV antibiotic treatment for invasive group a strep. Discharged on Bactrim DS twice daily for 5 additional days to complete 10 days total course of antibiotics. -Consulted orthopedic surgery, Dr. Sandoval, and we appreciate his time and care of the patient. Patient will plan to follow-up with Dr. Sandoval on Thursday05/16/2019. 2. Seizure disorder with recent seizure, present on admission. Stable. -Patient had a seizure just prior to admission. -Continued home divalproex 250 mg twice daily and lamotrigine 200 mg twice daily. Exam Vital Signs (past 8 hours): - 05/10/19 05:00 Temperature 97.6 F Pulse Rate 60 Respiratory Rate 17 Blood Pressure 111/77 Pulse Oximetry 95 Oxygen Delivery Method Room Air Oxygen Flow Rate 0 Narrative Exam Narrative: General: Middle-aged male sitting in bed and in no acute distress, well-developed, well-nourished, mildly anxious but appropriately interactive. HEENT: Normocephalic, atraumatic. External ears without defect. Pupils equal, round, and reactive to light and accommodation. Anicteric sclerae, moist conjunctivae, and no lid lag. Neck: Supple with full range of motion. No lymphadenopathy or thyromegaly. Cardiovascular: Regular rate and rhythm without murmurs, rubs, or gallops appreciated. Pulmonary: Clear to auscultation bilaterally without crackles, wheezes, or rhonchi. Normal respiratory effort with no use of accessory muscles. Abdomen: Bowel tones present. Soft, nontender, nondistended. No hepatosplenomegaly or masses appreciated. Extremities: No clubbing, cyanosis, or edema. Skin: Right lower extremity with erythema of medial aspect of mid thigh and knee improving and mild erythema of calf. Mild tenderness to palpation over medial aspect of right knee, improving. Neurological: Cranial nerves grossly intact. Psychiatric: Mildly anxious mood and affect. Alert and oriented to person, place, and time. Objective Labs Result Diagrams: 05/10/19 05:41 05/09/19 08:35 Labs: Laboratory Results - last 24 hr 05/09/19 05/09/19 05/09/19 08:35 08:35 08:35 WBC 14.7 H RBC 4.43 L Hgb 13.3 L Hct 38.9 L MCV 87.9 MCH 30.1 MCHC 34.2 RDW 13.3 Plt Count 420 H Neut % (Auto) 71.4 Lymph % (Auto) 12.8 L [place] % (Auto) 6.7 Eos % (Auto) 8.4 H Baso % (Auto) 0.7 Neut # (Auto) 70766 H Lymph # (Auto) 1900 [place] # (Auto) 1000 H Eos # (Auto) 1200 H Baso # (Auto) 100 Sodium 139 Potassium 4.2 Chloride 103 Carbon Dioxide 29 BUN 9 Creatinine 0.73 Estimated GFR > 60.0 BUN/Creatinine Ratio 12.3 Glucose 106 H Calcium 8.9 Procalcitonin 0.73 H 05/10/19 05/10/19 05:41 05:41 WBC 13.1 H RBC 4.31 L Hgb 12.9 L Hct 37.8 L MCV 87.9 MCH 30.0 MCHC 34.1 RDW 13.3 Plt Count 466 H Neut % (Auto) 57.4 Lymph % (Auto) 23.0 L [place] % (Auto) 8.0 Eos % (Auto) 10.6 H Baso % (Auto) 1.0 Neut # (Auto) 7500 H Lymph # (Auto) 3000 [place] # (Auto) 1100 H Eos # (Auto) 1400 H Baso # (Auto) 100 Sodium Potassium Chloride Carbon Dioxide BUN Creatinine Estimated GFR BUN/Creatinine Ratio Glucose Calcium Procalcitonin 0.39 Discharge Plan Discharge Plan Patient Disposition: Home Discharge comment: You are being discharged home. You have been prescribed Bactrim twice daily for 5 additional days to finish treating your cellulitis. Discharge orders & Medications Prescriptions: New sulfamethoxazole-trimethoprim [Bactrim DS] 800-160 mg tablet 1 tab PO Q12H Qty: 10 RF: 0 Continued lamotrigine 200 mg tablet 200 mg PO BID RF: 0 divalproex 250 mg tablet,delayed release (DR/EC) 250 mg PO BID RF: 0 Follow up/Referrals: Osorio Sandoval MD [Physician] - 05/16/19 9:30 am Diet/Activity/Treatments Diet: Regular Activity: Activity as tolerated Visit Report/Discharge Packet Instructions: DI for Cellulitis -- Adult, How To Perform RICE (Rest, Ice, Compress, Elevate), Sulfamethoxazole/Trimethoprim (By mouth) Visit Report Forms: Patient Portal/API, Stroke Signs & Symptoms Discharges patient from system. Discharge Date/Time: 05/10/19 10:58 Quality VTE Deep Vein Thrombosis/Pulmonary Embolism Present on Admission: No
[2019-05-10 08:43] VITALS: O2SAT 96
--- NOTE | 2019-05-10 09:30 | PM.PN.1 ---
Subjective Subjective Date Patient Seen: 05/10/19 Time Patient Seen: 09:30 Interval history: He is doing better. Much less pain and able to stand on the leg. Exam Vital Signs (past 8 hours): - 05/10/19 05:00 05/10/19 08:00 05/10/19 08:43 Temperature 97.6 F 97.7 F Pulse Rate 60 76 Respiratory Rate 17 18 Blood Pressure 111/77 106/70 Pulse Oximetry 95 96 96 Oxygen Delivery Method Room Air Oxygen Flow Rate 0 Const Orientation: alert and oriented x3 Extrem Other: Full range of motion of the right knee. Minimal tenderness to palpation medial to the patella. No fluctuance. Greatly decreased erythema throughout the entire leg. Objective Labs Result Diagrams: 05/10/19 05:41 05/09/19 08:35 Labs: Laboratory Results - last 24 hr 05/09/19 05/10/19 05/10/19 08:35 05:41 05:41 WBC 13.1 H RBC 4.31 L Hgb 12.9 L Hct 37.8 L MCV 87.9 MCH 30.0 MCHC 34.1 RDW 13.3 Plt Count 466 H Neut % (Auto) 57.4 Lymph % (Auto) 23.0 L [place] % (Auto) 8.0 Eos % (Auto) 10.6 H Baso % (Auto) 1.0 Neut # (Auto) 7500 H Lymph # (Auto) 3000 [place] # (Auto) 1100 H Eos # (Auto) 1400 H Baso # (Auto) 100 Procalcitonin 0.73 H 0.39 Assessment & Plan Assessment & Plan narrative: He appears much better today. I think he is fine to send home on oral antibiotics. He can follow up with me Thursday, or return to the hospital if this worsens on oral antibiotics. Quality VTE Deep Vein Thrombosis/Pulmonary Embolism Present on Admission: No
--- NOTE | 2019-05-10 10:55 | PC.NURSE ---
Went over dc meds and instructions with patient, questions answered.Patient given rx for abx, patient made aware of follow up appt on Thursday at 9:30. Patient escorted to vehicle driven by friend, patient had all belongings.
--- NOTE | 2019-05-10 11:14 | CM.DPC ---
DCP/continued: Received notification from provider that patient medically cleared for d/c today. Patient has follow up appointment scheduled with Dr. Sandoval. No PCP listed. Attempted to meet with patient to check on any d/c planning needs. Patient had already discharged. P: Home today. EVELIN Egan
== END 2019-05-10 10:58 | disposition home or self-care (01) | DRG 603 ==
LOC: ED 14:01 → AC 14:07
PROVIDERS: Family Medicine; Internal Medicine; Nurse Practitioner Family; Admitting Provider Internal Medicine; Emergency Provider Emergency Medicine; Referring Provider Emergency Medicine; Visit Provider Internal Medicine
DX: L03.115 Cellulitis of right lower limb (principal); G40.909 Epilepsy, unspecified, not intractable, without status epilepticus; M60.9 Myositis, unspecified; B95.0 Streptococcus, group A, as the cause of diseases classified elsewhere; S71.111A Laceration without foreign body, right thigh, initial encounter; Y93.89 Activity, other specified; Z23 Encounter for immunization
CPT/HCPCS: 36415; 73562; 73700; 73720; 80048; 80202; 83605; 84145; 84550; 85025; 85651; 86140; 87040; 87070; 87075; 87077; 87147; 87186; 87205; 89051; 89060; 93971; 96365; 96367; 99284; 90715; A9579; J0692; J0696; J1170; J1650; J1885; J2020; J2540

== ENCOUNTER 2020-08-22 13:50 | Emergency (ER) | payer OTHER, SELFPAY ==
[2019-05-06 00:53] VITALS: BMI 25.9
--- NOTE | 2020-08-22 13:58 | DI.RAD.S_ITS ---
PROCEDURE: XR SHOULDER LT MIN 2V INDICATIONS: fall TECHNIQUE: 3 views of the shoulder were acquired. COMPARISON: [facility], CR, XR SHOULDER LT MIN 2V, 11/19/2018, 3:26. FINDINGS: Bones: No fractures or dislocations. No suspicious bony lesions. Visualized ribs appear intact. Prominent appearance of large ossified intra-articular loose bodies overlying the glenohumeral joint space. Acromioclavicular narrowing is present. Severe glenohumeral narrowing is present, progressive. Soft tissues: No suspicious soft tissue calcifications. IMPRESSION: No visualized acute fracture or dislocation. However, if clinical concern and/or pain persist, short interval imaging followup in 7-10 days is recommended, as occult injury cannot be definitively excluded. Dictated by: Ibis Hope M.D. on 08/22/2020 at 14:23 Approved by: Ibis Hope M.D. on 08/22/2020 at 14:24
[2020-08-22 14:08] VITALS: BP 142/64; PULSE 64; RESP 16; TEMP 37.2; O2SAT 98
--- NOTE | 2020-08-22 14:15 | ED_ITS ---
HPI - Extremity Injury (Upper) General Chief Complaint: Extremity Injury, Upper Stated Complaint: left shoulder pain Time Seen by Provider: 08/22/20 14:02 Source: patient Mode of arrival: Ambulatory History of Present Illness HPI narrative: The patient is a 40-year-old male with history of epilepsy on Depakote and Lamictal presenting today with left shoulder pain. He states that he actually had 2 seizures yesterday. Was states that he has not had a seizure in over a year and typically when he does have a seizure he has 2. He was out side in the sun which she says sometimes triggers them. His he was seen by his neurologist last week and said everything was fine. Mostly complaining of left shoulder pain. Related Data Home Medications Medication Instructions Recorded Confirmed divalproex 250 mg tablet,delayed 250 mg PO BID 05/05/19 05/05/19 release lamotrigine 200 mg tablet 200 mg PO BID 05/05/19 05/05/19 Previous Rx's Medication Instructions Recorded sulfamethoxazole 800 1 tab PO Q12H #10 tab 05/10/19 mg-trimethoprim 160 mg tablet (Bactrim DS) hydrocodone 5 mg-acetaminophen 325 1 tab PO Q6H PRN #10 tab 08/22/20 mg tablet Allergies Allergy/AdvReac Type Severity Reaction Status Date / Time amoxicillin Allergy Verified 05/05/19 11:32 Review of Systems Review of Systems Narrative: GENERAL: Denies chills, fatigue, malaise, fever, sweats, travel HEENT: Denies sinus pain, ear pain, sore throat, difficulty swallowing, neck pain RESPIRATORY: Denies dyspnea, cough, wheezing, hemoptysis, sputum. CARDIOVASCULAR: Denies chest pain, palpitations, orthopnea, edema GASTROINTESTINAL: Denies nausea, vomiting, abdominal pain, diarrhea, constipation, melena. : Denies dysuria, frequency, incontinence, hematuria, urinary retention, flank pain. MUSCULOSKELETAL: See HPI SKIN: Small abrasion right forearm NEUROLOGIC: Seizure yesterday, headache now, see HPI PSYCHIATRIC: No concerning psychosocial issues. 12 point review of systems is negative except for those stated above and HPI Patient History Medical History (Updated 08/22/20 @ 15:12 by Renetta Mcdaniel DO) Epilepsy Laceration of knee with complication Seizure disorder Family History (Updated 05/05/19 @ 21:07 by JEN Monsalve) Other Diabetes mellitus Social History household members: significant other Smoking Status: Current every day smoker Smoking Status: Current every day smoker alcohol intake frequency: a few times a week Substance Use Type: does not use Exam Initial Vital Signs Initial Vital Signs: Vital Signs Temperature 98.9 F 08/22/20 14:08 Pulse Rate 64 08/22/20 14:08 Respiratory Rate 16 08/22/20 14:08 Blood Pressure 142/64 H 08/22/20 14:08 Pulse Oximetry 98 08/22/20 14:08 GENERAL: Well-appearing, well-nourished and in no acute distress. HEENT: Head atraumatic,EOMI, pupils reactive, face symmetric, moist mucous membranes CARDIOVASCULAR: Regular rate and rhythm without murmurs, rubs or gallops. RESPIRATORY: Breath sounds equal bilaterally, no wheezes rales or rhonchi. ABDOMEN: Soft, nontender. Normoactive bowel sounds all 4 quadrants. No guarding or rebound. EXTREMITIES: Normal range of motion, no clubbing or edema. Neurovascularly intact Left upper extremity no shoulder step-off no clavicle abnormality tender in the AC joint. Sensation in deltoid in tact home aide strength equal bilaterally distal radial pulse intact NEUROLOGICAL: Alert and oriented x4.Normal gait and speech. Cranial nerves II through XII grossly intact. Good [id number], good [id number], strength equal bilaterally, no dysarthria or aphasia, sensation in tact to soft touch bilaterally, no visual changes, no facial droop SKIN: Superficial abrasion on the right forearm Course Orders Ordered: ED Orders 08/22/20 13:58 XR shoulder LT min 2V Stat 08/22/20 14:29 Complete Blood Count AUTO DIFF Stat Comprehensive Metabolic Panel Stat Discontinued Medications Morphine Sulfate (Morphine 4 Mg/Ml Inj) 4 mg SUBCUT NOW ONE Stop: 08/22/20 14:25 Last Admin: 08/22/20 14:52 Dose: 4 mg Documented by: MARILYNN Vital Signs Vital signs: Vital Signs - 8 hr 08/22/20 14:08 08/22/20 15:28 Temperature 98.9 F Pulse Rate 64 72 Respiratory Rate 16 16 Blood Pressure 142/64 H 117/64 Pulse Oximetry 98 97 MDM - Extremity Injury (Upper) Lab Data Result diagrams: 08/22/20 14:29 08/22/20 14:29 Labs: Lab Results 08/22/20 08/22/20 Range/Units 14:29 14:29 WBC 15.8 H (4.5-11.0) X10^3/uL RBC 5.09 (4.5-5.9) X10^6/uL Hgb 15.0 (13.5-17.5) g/dL Hct 44.7 (41-53) % MCV 87.7 (80-100) fL MCH 29.4 (26-34) PG MCHC 33.5 (30-36) % RDW 13.5 (11.6-14.8) % Plt Count 402 H (150-400) X10^3/uL Neut % (Auto) 85.6 H (50-75) % Lymph % (Auto) 7.7 L (25-40) % [place] % (Auto) 6.3 (3-14) % Eos % (Auto) 0.0 L (2-4) % Baso % (Auto) 0.4 (0-2) % Neut # (Auto) 69487 H (4640-0092) /uL Lymph # (Auto) 1200 (8245-6414) /uL [place] # (Auto) 1000 H (0-900) /uL Eos # (Auto) 0 (0-450) /uL Baso # (Auto) 100 (0-100) /uL Sodium 137 (137-145) mmol/L Potassium 3.7 (3.4-5.1) mmol/L Chloride 103 (98-107) mmol/L Carbon Dioxide 27 (22-32) mmol/L BUN 10 (9-20) mg/dL Creatinine 0.72 (0.66-1.25) mg/dL Estimated GFR > 60.0 (>60) mL/min BUN/Creatinine Ratio 13.9 (6-22) Glucose 117 H (70-100) mg/dL Calcium 9.2 (8.4-10.2) mg/dL Total Bilirubin 0.5 (0.2-1.3) mg/dL AST 34 (17-59) IU/L ALT 21 (<50) IU/L Alkaline Phosphatase 55 (38-126) U/L Total Protein 7.3 (6.3-8.2) g/dL Albumin 4.5 (3.5-5.0) g/dL Globulin 2.8 (1.7-4.1) g/dL Albumin/Globulin Ratio 1.6 (1.0-2.8) Imaging Data Extremity x-ray #1: Radiologist's Impression: PROCEDURE: XR SHOULDER LT MIN 2V INDICATIONS: fall TECHNIQUE: 3 views of the shoulder were acquired. COMPARISON: [facility], CR, XR SHOULDER LT MIN 2V, 11/19/2018, 3:26. FINDINGS: Bones: No fractures or dislocations. No suspicious bony lesions. Visualized ribs appear intact. Prominent appearance of large ossified intra-articular loose bodies overlying the glenohumeral joint space. Acromioclavicular narrowing is present. Severe glenohumeral narrowing is present, progressive. Soft tissues: No suspicious soft tissue calcifications. IMPRESSION: No visualized acute fracture or dislocation. However, if clinical concern and/or pain persist, short interval imaging followup in 7-10 days is recommended, as occult injury cannot be definitively excluded. Dictated by: Ibis Hope M.D. on 08/22/2020 at 14:23 Approved by: Ibis Hope M.D. on 08/22/2020 at 14:24 [facility] Narrative Medical decision making narrative: Patient has leukocytosis he frequently has some leukocytosis always is at this time unlikely to be an infection. I juanito solorzano do not suspect septic joint is not red he is afebrile. He is given a sling with instructions to move it and remove his arm from sling as tolerated. He has a neurologist whom he sees on a regular basis. It does not sound as though he has breakthrough seizures very often. His says that he often causes them Discharge Plan Departure Patient Disposition: Home Clinical Impression: Shoulder sprain Qualifiers: Encounter type: initial encounter Shoulder sprain type: unspecified sprain Laterality: left Qualified Code(s): S43.402A - Unspecified sprain of left shoulder joint, initial encounter Instructions: DI for Shoulder Sprain Activity Restrictions/Additional Instructions: *You have been diagnosed with left shoulder sprain, seizure *What to do: At this time her x-ray is negative. New likely had a breakthrough seizure. Your electrolytes and blood work are overall reassuring today. Please follow-up with neurology. If you have a recurrent seizure in the next 1-2 weeks your seizure medication may need to be adjusted. *Continue to take medications as directed Tylenol 1000 mg every 6 hours if needed for hesp-zo-obcdheht pain Meloxicam 7.5-15 mg once daily *Follow up with your primary care provider in 2-3 days *Return to ER if you should have increasing pain, persistent seizures or any new, worsening or concerning symptoms CONTROLLED SUBSTANCE DISCHARGE (Narcotoic/benzodiazepine/Flexeril/Phenergan) 1. You have been prescribed narcotic medications, it does have acetaminophen/Tylenol/paracetamol in it, DO NOT TAKE MORE THAN 4,00mg in 24 hours of Tylenol. TRAMADOL DOES NOT CONTAIN TYLENOL 2. Please understand that we cannot provide further refills of narcotics, benzodiazepines or controlled substances through the ED and her pain management will need to be through your provider. 3. While on these medications you cannot drive or operate heavy machinery. 4. You cannot sign legal documents or perform any duties such as this. 5. As long as you're taking opiate pain medications he should also be taking a stool softener such as Colace, Dulcolax, MiraLAX or prune juice, to help avoid constipation. Prescriptions: New hydrocodone-acetaminophen 5-325 mg tablet 1 tab PO Q6H PRN (Reason: pain) Qty: 10 RF: 0 No Action lamotrigine 200 mg tablet 200 mg PO BID RF: 0 divalproex 250 mg tablet,delayed release (DR/EC) 250 mg PO BID RF: 0 sulfamethoxazole-trimethoprim [Bactrim DS] 800-160 mg tablet 1 tab PO Q12H Qty: 10 RF: 0 Stand Alone Forms: Work Release Note
[2020-08-22 14:41] LABS: Add Manual Diff / Slide Review NO; Basophils Absolute Auto 100 /uL (0-100); Basophils Percent Auto 0.4 % (0-2); Eosinophils Absolute Auto 0 /uL (0-450); Hematocrit 44.7 % (41-53); Lymphocytes Absolute Auto 1200 /uL (1100-4500); Lymphocytes Percent Auto 7.7 % (25-40); Mean Corpuscular HGB Conc 33.5 % (30-36); Mean Corpuscular Hemoglobin 29.4 PG (26-34); Mean Corpuscular Volume 87.7 fL (80-100); Monocytes Absolute Auto 1000 /uL (0-900); Monocytes Percent Auto 6.3 % (3-14); Neutrophils Absolute Auto 13500 /uL (1500-7000); Neutrophils Percent Auto 85.6 % (50-75); Platelet Count 402 X10^3/uL (150-400); Red Blood Cell Count 5.09 X10^6/uL (4.5-5.9); Red Cell Distribution Width 13.5 % (11.6-14.8); White Blood Cell Count 15.8 X10^3/uL (4.5-11.0)
[2020-08-22] MEDS: MORPHINE 4 MG/ML INJ SUBCUT (14:52)
[2020-08-22 14:56] LABS: Alanine Aminotransferase 21 IU/L (<50); Albumin 4.5 g/dL (3.5-5.0); Albumin Globulin Ratio 1.6 (1.0-2.8); Alkaline Phosphatase 55 U/L (38-126); Aspartate Aminotransferase 34 IU/L (17-59); BUN Creatinine Ratio 13.9 (6-22); Bilirubin Total 0.5 mg/dL (0.2-1.3); Blood Urea Nitrogen 10 mg/dL (9-20); Calcium 9.2 mg/dL (8.4-10.2); Carbon Dioxide 27 mmol/L (22-32); Chloride 103 mmol/L (98-107); Estimated Glomerular Filt Rate > 60.0 mL/min (>60); Globulin 2.8 g/dL (1.7-4.1); Glucose 117 mg/dL (70-100); HEMOLYSIS < 15 (0-50); Potassium 3.7 mmol/L (3.4-5.1); Sodium 137 mmol/L (137-145); Total Protein 7.3 g/dL (6.3-8.2)
[2020-08-22 15:28] VITALS: BP 117/64; PULSE 72; RESP 16; O2SAT 97
== END 2020-08-22 15:28 | disposition home or self-care (01) ==
PROVIDERS: Emergency Provider Emergency Medicine
DX: S43.402A Unspecified sprain of left shoulder joint, initial encounter (principal); X58.XXXA Exposure to other specified factors, initial encounter; Z86.69 Personal history of other diseases of the nervous system and sense organs
CPT/HCPCS: 36415; 73030; 80053; 85025; 96372; 99284; J2270

== ENCOUNTER 2023-05-16 14:51 | Emergency (ER) | payer OTHER, SELFPAY ==
[2019-05-06 00:53] VITALS: BMI 25.9
[2023-05-16] VITALS (16 sets, daily range): BP systolic 121–157; BP diastolic 60–96; PULSE 80–130; RESP 13–26; O2SAT 92–100; BMI 26.9
--- NOTE | 2023-05-16 14:58 | DI.CT.S_ITS ---
PROCEDURE: CT HEAD/BRAIN WO CON INDICATIONS: Trauma TECHNIQUE: Noncontrast 4.5 mm thick angled axial sections acquired from the foramen magnum to the vertex, with coronal and sagittal reformats. For radiation dose reduction, the following was used: automated exposure control, adjustment of mA and/or kV according to patient size. COMPARISON: [facility], CT, CT CERVICAL SPINE WO CON, 05/16/2023, 15:04. FINDINGS: Image quality: Mild streak artifact can be seen through the skull base. CSF spaces: Basal cisterns are patent. No extra-axial fluid collections. Ventricles are normal in size and shape. Brain: No midline shift. No intracranial masses or hemorrhage. Garcia-white matter interface is normal. Skull and face: Calvarium and visualized facial bones are intact, without suspicious lesions. Sinuses: There is a mucous retention cyst seen within the right maxillary sinus. Visualized sinuses and mastoids are otherwise clear. IMPRESSION: No acute intracranial hemorrhage is seen. No acute intracranial process is seen. Dictated by: Mulugeta Fried M.D. on 05/16/2023 at 14:23 Approved by: Mulugeta Fried M.D. on 05/16/2023 at 14:23
--- NOTE | 2023-05-16 14:58 | DI.CT.S_ITS ---
PROCEDURE: CT CERVICAL SPINE WO CON INDICATIONS: Trauma TECHNIQUE: Noncontrast 3 mm thick sections acquired from the skull base to the T4 level. Sagittal and coronal reformats were then constructed. For radiation dose reduction, the following was used: automated exposure control, adjustment of mA and/or kV according to patient size. COMPARISON: [facility], CR, XR SHOULDER LT MIN 2V, 11/19/2018, 3:26. [facility], CR, XR SHOULDER LT MIN 2V, 08/22/2020, 13:57. [facility], CT, CT LE LT WO CON, 05/06/2019, 21:31. [facility], CT, CT HEAD/BRAIN WO CON, 05/16/2023, 15:04. FINDINGS: Image quality: This examination is limited by involuntary motion artifact. Bones: No fractures or dislocations. Visualized superior ribs are intact. Note is made of a partially visualized chronic appearing lesion along the medial left shoulder, as seen on series 7, image 20, measuring up to 5.4 cm. Soft tissues: Prevertebral soft tissues are normal in thickness. No paravertebral hematomas. No apical pneumothoraces. IMPRESSION: No acute fracture or traumatic subluxation. Incidental note is made of a partially visualized chronic appearing lesion along the medial aspect of the left shoulder, which is similar to 2019 and attributed to remote trauma. Dictated by: Mulugeta Fried M.D. on 05/16/2023 at 14:24 Approved by: Mulugeta Fried M.D. on 05/16/2023 at 14:31
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
[2023-05-16 15:07] LABS: Add Manual Diff / Slide Review NO; Basophils Absolute Auto 100 /uL (0-100); Basophils Percent Auto 0.8 % (0-2); Eosinophils Absolute Auto 0 /uL (0-450); Eosinophils Percent Auto 0.1 % (2-4); Hematocrit 49.3 % (41-53); Hemoglobin 15.7 g/dL (13.5-17.5); Lymphocytes Absolute Auto 3700 /uL (1100-4500); Lymphocytes Percent Auto 19.4 % (25-40); Mean Corpuscular HGB Conc 31.8 % (30-36); Mean Corpuscular Hemoglobin 28.9 PG (26-34); Mean Corpuscular Volume 90.6 fL (80-100); Monocytes Absolute Auto 900 /uL (0-900); Monocytes Percent Auto 4.9 % (3-14); Neutrophils Absolute Auto 14300 /uL (1500-7000); Neutrophils Percent Auto 74.8 % (50-75); Platelet Count 490 X10^3/uL (150-400); Red Blood Cell Count 5.44 X10^6/uL (4.5-5.9); Red Cell Distribution Width 13.5 % (11.6-14.8); White Blood Cell Count 19.1 X10^3/uL (4.5-11.0)
[2023-05-16 15:08] LABS: Prothrombin Time 11.2 SECONDS (9.4-12.5)
[2023-05-16 15:14] LABS: Albumin 5.3 g/dL (3.5-5.0); Albumin Globulin Ratio 1.7 (1.0-2.8); Alkaline Phosphatase 50 U/L (38-126); Aspartate Aminotransferase 39 IU/L (17-59); BUN Creatinine Ratio 10.8 (6-22); Bilirubin Total 0.5 mg/dL (0.2-1.3); Blood Urea Nitrogen 12 mg/dL (9-20); Calcium 9.7 mg/dL (8.4-10.2); Chloride 105 mmol/L (98-107); Estimated Glomerular Filt Rate > 60 mL/min (>60); Ethanol (ETOH) < 10 mg/dL; Globulin 3.1 g/dL (1.7-4.1); Glucose 134 mg/dL (70-100); Lipase 123 U/L (23-300); Potassium 4.3 mmol/L (3.4-5.1); Sodium 142 mmol/L (137-145); Total Protein 8.4 g/dL (6.3-8.2)
[2023-05-16 15:20] LABS: Alanine Aminotransferase 40 IU/L (<50)
--- NOTE | 2023-05-16 15:21 | PC.NURSE ---
information technology internship asked physician if he would like any labs on this patient prior to the CT angio. Provider denied wanting any labs on this patient. No new orders at this time.
[2023-05-16 15:30] LABS: HEMOLYSIS 39 (0-50)
[2023-05-16 15:31] LABS: Carbon Dioxide 9 mmol/L (22-32)
[2023-05-16] MEDS: TET,DIPH,PERTUSS(ACELL),VAC/PF 0.5 ML SYRINGE IM (15:44)
[2023-05-16 16:24] LABS: UR Morphine/Opiate cutoff 300 Negative (Negative); Ur Creatinine n (Normal); Ur Specific Gravity n (Normal); Urine Amphetamines Negative (Negative); Urine Barbiturates Negative (Negative); Urine Benzodiazepines Negative (Negative); Urine Cocaine Negative (Negative); Urine MDMA Negative (Negative); Urine Methadone Negative (Negative); Urine Methamphetamines Negative (Negative); Urine Oxycodone Negative (Negative); Urine Phencyclidine Negative (Negative); Urine Tetrahydrocannabinol Positive (Negative); Urine Tricyclic Antidepressant Negative (Negative); Urine pH n (Normal)
[2023-05-16 16:50] LABS: Bacteria Urine Few (2-10); Hyaline Casts Urine 0-1/LPF; RBC Urine 0-1/HPF (0-5/HPF); Squamous Epithelial Cell Urine None Seen (0-5/HPF); Urine Volume 10mL (spun); WBC Urine 0-1/HPF (0-5/HPF)
--- NOTE | 2023-05-16 18:41 | PC.NURSE ---
After paper discharge, pt requesting pain medications. Dr. Huitron ordered oxycodone 5 mg po.
[2023-05-16] MEDS: OXYCODONE IR 5 MG TABLET PO (18:44)
== END 2023-05-16 18:39 | disposition home or self-care (01) ==
PROVIDERS: Emergency Provider Emergency Medicine
DX: G40.909 Epilepsy, unspecified, not intractable, without status epilepticus (principal); R41.82 Altered mental status, unspecified; V89.2XXA Person injured in unspecified motor-vehicle accident, traffic, initial encounter; Z23 Encounter for immunization
CPT/HCPCS: 36415; 70450; 72125; 80053; 80164; 80305; 80320; 81003; 81015; 83690; 85025; 85610; 87086; 90471; 93005; 93010; 99285; 90715